=== PATIENT | female | born 1975 | race Two or more races ===

== ENCOUNTER 2017-05-22 16:12 | Emergency (ER) | payer MEDICAID ==
[~2017-05-22] VITALS: Ht 172.7 cm; Wt 133.8 kg
[2017-05-22 17:16] VITALS: BP 148/76
== END 2017-05-22 18:02 | disposition home or self-care (01) ==
LOC: ER 16:12
DX: N39.0 Urinary tract infection, site not specified (principal); M79.671 Pain in right foot; J45.909 Unspecified asthma, uncomplicated; I10 Essential (primary) hypertension; E11.9 Type 2 diabetes mellitus without complications
CPT/HCPCS: 81002

== ENCOUNTER 2017-08-23 16:04 | Inpatient (IN) | payer MEDICAID ==
[~2017-08-23] VITALS: Ht 172.7 cm; Wt 150.4 kg
[2017-08-23] MEDS ORDERED: SODIUM CHLORIDE 0.9% 1,000 ML IV ONE (16:42)
[2017-08-23 17:25] LABS: Basophils # (auto) 0 uL; Basophils % (auto) 0.3 % (0.0-2.0); Eosinophils # (auto) 0.3 uL; Eosinophils % (auto) 2.4 % (0.0-7.0); Hematocrit 38.2 % (36.0-46.0); Hemoglobin 12.6 g/dL (12.2-16.2); Lymphocytes # (auto) 2.4 uL; Lymphocytes % (auto) 19.9 % (10.0-50.0); Mean Corpuscular Hemoglobin 27.1 pg (28.0-32.0); Mean Corpuscular Hgb Conc. 32.9 g/dL (32.0-36.0); Mean Corpuscular Volume 82.3 fL (80.0-100.0); Monocytes # (auto) 0.7 uL; Monocytes % (auto) 5.7 % (0.0-12.0); Neutrophils # (auto) 8.7 uL; Neutrophils % (auto) 71.7 % (37.0-80.0); Nucleated Red Blood Cells % 0.1 %; Platelet Count (auto) 252 10^3/uL (140-450); Red Blood Cells 4.64 10^6/uL (4.0-5.20); Red Cell Distribution Width 13.2 % (11.8-14.3); White Blood Cell 12.1 10^3/uL (4.4-10.8)
[2017-08-23 17:36] LABS: Bilirubin, Total 0.1 mg/dL (0.2-1.0); Calcium 8.2 mg/dL (8.5-10.1); Potassium 4.1 mmol/L (3.5-5.1); Total Protein 7.6 g/dL (6.4-8.2)
[2017-08-23] MEDS ORDERED: SODIUM CHLORIDE 0.9% 1,000 ML IVB ONE (17:39)
[2017-08-23] MEDS ORDERED: cefTRIAXone 1GM/10ml IVPUSH 10 ML IV ONE (17:45)
[2017-08-23] MEDS ORDERED: IPRATROPIUM BROM 0.5 MG/2.5ML INH SOL HHN ONE (17:45)
[2017-08-23] MEDS ORDERED: ALBUTEROL SULF 2.5 MG/0.5ML(0.5%) NEB SOLN HHN ONE (17:45)
[2017-08-23] MEDS ORDERED: methylPREDNISolone SOD SUCC 125 MG/2 ML VL IV ONE (17:45)
[2017-08-23 18:03] LABS: INR 0.89 (0.9-1.15); Partial Thromboplastin Time 31.7 sec (22.64-33.71); Prothrombin Time 9.7 sec (9.37-12.3)
[2017-08-23] MEDS ORDERED: InsuLIN REG 1unit/0.01ml Soln (100units/ml) IV ONE ×2 (19:45→23:30)
[2017-08-23] MEDS ORDERED: ONDANSETRON HCL 4 MG/2 ML VIAL IV PRN (22:15)
[2017-08-23] MEDS ORDERED: ACETAMINOPHEN 500 MG TAB PO PRN (22:15)
[2017-08-23] MEDS ORDERED: HYDROcodone-ACET 5/325MG TAB PO PRN (22:15)
[2017-08-23 23:01] VITALS: BP 135/71
[2017-08-23] MEDS: ALBUTEROL SULF 2.5 MG/0.5ML(0.5%) NEB SOLN NEB SCH (23:46)
[2017-08-23] MEDS: IPRATROPIUM BROM 0.5 MG/2.5ML INH SOL NEB SCH (23:46)
[2017-08-23 23:50] LABS: Lactic Acid w/Reflex 2.1 mmol/L (0.4-2.0)
[2017-08-24] MEDS ORDERED: ACCU-CHEK COMFORT CURVE STRIP VI SCH
[2017-08-24] MEDS ORDERED: InsuLIN REG 1unit/0.01ml Soln (100units/ml) SC SCH
[2017-08-24] MEDS: InsuLIN REG 1unit/0.01ml Soln (100units/ml) SC SCH ×5 (00:50→20:24)
[2017-08-24] MEDS ORDERED: INSULIN DETEMIR(LEVEMIR) 1unit/0.01ml Soln (100units/ml) SC ONE (00:50)
[2017-08-24] MEDS ORDERED: DEXTROSE (50%) 50ML SYRG IV PRN ×3 (01:00→19:45)
[2017-08-24] MEDS ORDERED: TEMAZEPAM 15 MG CAP PO ONE (02:15)
[2017-08-24] MEDS: ACCU-CHEK COMFORT CURVE STRIP VI SCH ×5 (04:00→20:24)
[2017-08-24 05:23] LABS: Basophils # (auto) 0 uL; Eosinophils # (auto) 0 uL; Hemoglobin 10.9 g/dL (12.2-16.2); Lymphocytes # (auto) 0.5 uL; Monocytes # (auto) 0.1 uL; Platelet Count (auto) 244 10^3/uL (140-450)
[2017-08-24 05:26] LABS: Hematocrit 34.8 % (36.0-46.0); Lymphocytes % (auto) 3.8 % (10.0-50.0); Mean Corpuscular Hemoglobin 26.4 pg (28.0-32.0); Mean Corpuscular Hgb Conc. 31.3 g/dL (32.0-36.0); Mean Corpuscular Volume 84.4 fL (80.0-100.0); Monocytes % (auto) 0.8 % (0.0-12.0); Neutrophils # (auto) 11.9 uL; Neutrophils % (auto) 95.4 % (37.0-80.0); Red Blood Cells 4.13 10^6/uL (4.0-5.20); White Blood Cell 12.5 10^3/uL (4.4-10.8)
[2017-08-24 05:27] LABS: BUN/Creatinine Ratio 15.7; Calcium 7.5 mg/dL (8.5-10.1); Potassium 4.8 mmol/L (3.5-5.1)
[2017-08-24] MEDS ORDERED: SODIUM CHLORIDE 0.9% 2,000 ML IV ONE (05:45)
[2017-08-24] MEDS: IPRATROPIUM BROM 0.5 MG/2.5ML INH SOL NEB SCH ×3 (06:00→18:20)
[2017-08-24] MEDS: ALBUTEROL SULF 2.5 MG/0.5ML(0.5%) NEB SOLN NEB SCH ×3 (06:00→18:20)
[2017-08-24] MEDS ORDERED: SODIUM CHLORIDE 0.9% 1,000 ML IV SCH (06:30)
[2017-08-24] MEDS ORDERED: INSULIN DETEMIR(LEVEMIR) 1unit/0.01ml Soln (100units/ml) SC SCH ×2 (07:00→22:00)
[2017-08-24] MEDS ORDERED: BENAZEPRIL HCL 10 MG TAB PO SCH (10:00)
[2017-08-24] MEDS ORDERED: METF-372 PO (10:11)
[2017-08-24] MEDS ORDERED: BENA20TA14 PO (10:11)
[2017-08-24] MEDS ORDERED: GABA300C10 PO (10:11)
[2017-08-24] MEDS ORDERED: INSLISPI SC (10:11)
[2017-08-24] MEDS ORDERED: INSLANTI SC (10:11)
[2017-08-24] MEDS ORDERED: ALBU1SYP PO (10:11)
[2017-08-24] MEDS ORDERED: TRAZ100T2 PO (10:11)
[2017-08-24] MEDS ORDERED: ALBUTEROL SULF 2 MG/5ML ORAL SYRUP PO PRN (10:15)
[2017-08-24] MEDS: SODIUM CHLORIDE 0.9% 1,000 ML IV SCH ×2 (10:30→20:26)
[2017-08-24] MEDS: INSULIN DETEMIR(LEVEMIR) 1unit/0.01ml Soln (100units/ml) SC SCH ×2 (10:30→20:24)
[2017-08-24] MEDS: BENAZEPRIL HCL 10 MG TAB PO SCH (11:11)
[2017-08-24 12:21] LABS: Urine Bacteria NONE SEEN /hpf (None Seen); Urine Blood 1+ /uL (Negative); Urine Specific Gravity 1.023 (1.001-1.035); Urine WBC 1 /hpf (0 - 5)
[2017-08-24] MEDS ORDERED: HYDR25TA4 PO (12:38)
[2017-08-24] MEDS ORDERED: FAM20T PO (12:38)
[2017-08-24] MEDS ORDERED: SERT-160 PO (12:38)
[2017-08-24] MEDS ORDERED: TRAM50TA2 PO (12:38)
[2017-08-24 13:00] VITALS: BP 157/90
[2017-08-24] MEDS: GABAPENTIN 300 MG CAP PO SCH ×2 (14:19→21:31)
[2017-08-24] MEDS: metFORMIN HYDROCHLORIDE 500 MG TAB PO SCH ×2 (15:46→18:53)
[2017-08-24 17:00] VITALS: BP 125/76
[2017-08-24 21:30] VITALS: BP 145/78
[2017-08-24] MEDS: traZODone HCL 50 MG TAB PO SCH (21:31)
[2017-08-24] MEDS ORDERED: PATIENTS OWN MEDICATION (Trazodone Hcl 100 MG) PO SCH (22:00)
[2017-08-24] MEDS ORDERED: PATIENTS OWN MEDICATION (Metformin Hydrochloride (Metformin Hcl) 1 TAB) PO SCH (22:00)
[2017-08-25] MEDS: InsuLIN REG 1unit/0.01ml Soln (100units/ml) SC SCH ×6 (00:13→20:37)
[2017-08-25] MEDS: ACCU-CHEK COMFORT CURVE STRIP VI SCH ×6 (00:13→20:37)
[2017-08-25] MEDS: ALBUTEROL SULF 2.5 MG/0.5ML(0.5%) NEB SOLN NEB SCH ×5 (00:40→19:36)
[2017-08-25] MEDS: IPRATROPIUM BROM 0.5 MG/2.5ML INH SOL NEB SCH ×5 (00:40→19:36)
[2017-08-25 05:00] VITALS: BP_SYST 56; BP_SYST 95; BP_DIAS 56
[2017-08-25 05:51] LABS: Eosinophils # (auto) 0.2 uL; Hemoglobin 10.2 g/dL (12.2-16.2); Lymphocytes # (auto) 2.5 uL; Monocytes # (auto) 0.9 uL; Neutrophils # (auto) 11.6 uL; White Blood Cell 15.2 10^3/uL (4.4-10.8)
[2017-08-25 05:52] LABS: Basophils # (auto) 0 uL; Basophils % (auto) 0.2 % (0.0-2.0); Eosinophils % (auto) 1.1 % (0.0-7.0); Hematocrit 31.2 % (36.0-46.0); Lymphocytes % (auto) 16.6 % (10.0-50.0); Mean Corpuscular Hemoglobin 26.6 pg (28.0-32.0); Mean Corpuscular Hgb Conc. 32.6 g/dL (32.0-36.0); Mean Corpuscular Volume 81.6 fL (80.0-100.0); Monocytes % (auto) 6.1 % (0.0-12.0); Platelet Count (auto) 273 10^3/uL (140-450); Red Blood Cells 3.82 10^6/uL (4.0-5.20); Red Cell Distribution Width 13.6 % (11.8-14.3)
[2017-08-25 06:04] LABS: Albumin 1.6 g/dL (3.4-5.0); Anion Gap 9 (5-15); Blood Urea Nitrogen 27 mg/dL (7-18); Calcium 7.9 mg/dL (8.5-10.1); Carbon Dioxide 21 mmol/L (21-32); Chloride 109 mmol/L (98-107); Glucose 151 mg/dL (74-106); Potassium 4.1 mmol/L (3.5-5.1); Sodium 139 mmol/L (136-145)
[2017-08-25] MEDS: SODIUM CHLORIDE 0.9% 1,000 ML IV SCH ×2 (06:05→15:40)
[2017-08-25 06:07] LABS: Alanine Aminotransferase 9 U/L (13-56); Aspartate Aminotransferase 10 U/L (15-37); BUN/Creatinine Ratio 21.1; GFR African American 60 mL/min; GFR Non-African American 49 mL/min
[2017-08-25 06:09] LABS: Alkaline Phosphatase 315 U/L (45-117); Bilirubin, Total < 0.1 mg/dL (0.2-1.0); Total Protein 6.3 g/dL (6.4-8.2)
[2017-08-25] MEDS: metFORMIN HYDROCHLORIDE 500 MG TAB PO SCH ×2 (06:27→17:44)
[2017-08-25] MEDS: GABAPENTIN 300 MG CAP PO SCH ×3 (06:27→21:19)
[2017-08-25 09:00] VITALS: BP 95/62
[2017-08-25] MEDS ORDERED: PATIENTS OWN MEDICATION (Benazepril Hcl 20 MG) PO SCH (10:00)
[2017-08-25] MEDS: BENAZEPRIL HCL 10 MG TAB PO SCH (10:18)
[2017-08-25] MEDS: INSULIN DETEMIR(LEVEMIR) 1unit/0.01ml Soln (100units/ml) SC SCH ×2 (10:21→20:37)
[2017-08-25 13:00] VITALS: BP 112/75
[2017-08-25 17:00] VITALS: BP 119/63
[2017-08-25] MEDS: traZODone HCL 50 MG TAB PO SCH (21:19)
[2017-08-25 21:32] VITALS: BP 99/43
[2017-08-26] MEDS: InsuLIN REG 1unit/0.01ml Soln (100units/ml) SC SCH ×6 (00:06→20:35)
[2017-08-26] MEDS: ACCU-CHEK COMFORT CURVE STRIP VI SCH ×6 (00:06→20:35)
[2017-08-26] MEDS: IPRATROPIUM BROM 0.5 MG/2.5ML INH SOL NEB SCH ×4 (00:12→20:48)
[2017-08-26] MEDS: ALBUTEROL SULF 2.5 MG/0.5ML(0.5%) NEB SOLN NEB SCH ×3 (00:12→20:48)
[2017-08-26] MEDS: SODIUM CHLORIDE 0.9% 1,000 ML IV SCH ×3 (03:55→22:33)
[2017-08-26 05:00] VITALS: BP 98/62
[2017-08-26] MEDS: GABAPENTIN 300 MG CAP PO SCH ×3 (05:49→22:22)
[2017-08-26] MEDS: metFORMIN HYDROCHLORIDE 500 MG TAB PO SCH ×2 (05:49→18:33)
[2017-08-26 05:54] LABS: Basophils # (auto) 0.1 uL; Basophils % (auto) 0.5 % (0.0-2.0); Hemoglobin 10.3 g/dL (12.2-16.2); Mean Corpuscular Hemoglobin 26.1 pg (28.0-32.0); Mean Corpuscular Hgb Conc. 31.6 g/dL (32.0-36.0); Mean Corpuscular Volume 82.5 fL (80.0-100.0); Monocytes # (auto) 0.9 uL; Neutrophils # (auto) 7.3 uL; Nucleated Red Blood Cells % 0.1 %
[2017-08-26 05:56] LABS: Eosinophils # (auto) 0.6 uL; Eosinophils % (auto) 5.3 % (0.0-7.0); Hematocrit 32.7 % (36.0-46.0); Lymphocytes # (auto) 2.8 uL; Lymphocytes % (auto) 24.2 % (10.0-50.0); Monocytes % (auto) 7.9 % (0.0-12.0); Neutrophils % (auto) 62.1 % (37.0-80.0); Platelet Count (auto) 290 10^3/uL (140-450); Red Blood Cells 3.97 10^6/uL (4.0-5.20); Red Cell Distribution Width 13.6 % (11.8-14.3); White Blood Cell 11.8 10^3/uL (4.4-10.8)
[2017-08-26 05:57] LABS: BUN/Creatinine Ratio 26.7; Calcium 8.3 mg/dL (8.5-10.1); Potassium 4.7 mmol/L (3.5-5.1)
[2017-08-26 07:50] VITALS: BP 106/59
[2017-08-26] MEDS: BENAZEPRIL HCL 10 MG TAB PO SCH (09:50)
[2017-08-26] MEDS: INSULIN DETEMIR(LEVEMIR) 1unit/0.01ml Soln (100units/ml) SC SCH ×2 (09:51→22:33)
[2017-08-26] MEDS ORDERED: methylPREDNISolone SOD SUCC 40 MG/ML VL IV SCH (10:00)
[2017-08-26 11:29] VITALS: BP 145/72
[2017-08-26 16:13] VITALS: BP 164/85
[2017-08-26] MEDS ORDERED: InsuLIN REG 1unit/0.01ml Soln (100units/ml) SC ONE ×2 (17:00→18:30)
[2017-08-26] MEDS ORDERED: DOCUSATE SOD 100 MG CAP PO PRN (18:30)
[2017-08-26 22:00] VITALS: BP 142/78
[2017-08-26] MEDS: traZODone HCL 50 MG TAB PO SCH (22:22)
[2017-08-26 23:05] VITALS: BP 142/78
[2017-08-27] MEDS: ALBUTEROL SULF 2.5 MG/0.5ML(0.5%) NEB SOLN NEB SCH ×3 (00:19→12:27)
[2017-08-27] MEDS: IPRATROPIUM BROM 0.5 MG/2.5ML INH SOL NEB SCH ×3 (00:19→12:27)
[2017-08-27] MEDS: ACCU-CHEK COMFORT CURVE STRIP VI SCH ×3 (00:28→09:31)
[2017-08-27] MEDS: InsuLIN REG 1unit/0.01ml Soln (100units/ml) SC SCH ×3 (04:33→09:31)
[2017-08-27 05:00] VITALS: BP 112/62
[2017-08-27 05:46] LABS: Basophils # (auto) 0 uL; Eosinophils # (auto) 0 uL; Eosinophils % (auto) 0.2 % (0.0-7.0); Hemoglobin 9.9 g/dL (12.2-16.2); Neutrophils # (auto) 13.4 uL; White Blood Cell 16.3 10^3/uL (4.4-10.8)
[2017-08-27 05:49] LABS: Basophils % (auto) 0.3 % (0.0-2.0); Hematocrit 30.9 % (36.0-46.0); Lymphocytes # (auto) 1.8 uL; Lymphocytes % (auto) 11.2 % (10.0-50.0); Mean Corpuscular Hemoglobin 26.2 pg (28.0-32.0); Mean Corpuscular Volume 81.7 fL (80.0-100.0); Monocytes % (auto) 6.1 % (0.0-12.0); Neutrophils % (auto) 82.2 % (37.0-80.0); Nucleated Red Blood Cells % 0.1 %; Platelet Count (auto) 300 10^3/uL (140-450); Red Blood Cells 3.78 10^6/uL (4.0-5.20); Red Cell Distribution Width 13.8 % (11.8-14.3)
[2017-08-27 06:01] LABS: BUN/Creatinine Ratio 22.5
[2017-08-27] MEDS: metFORMIN HYDROCHLORIDE 500 MG TAB PO SCH (06:41)
[2017-08-27] MEDS: GABAPENTIN 300 MG CAP PO SCH (06:41)
[2017-08-27 07:52] VITALS: BP 130/73
[2017-08-27] MEDS: BENAZEPRIL HCL 10 MG TAB PO SCH (09:27)
[2017-08-27] MEDS: SODIUM CHLORIDE 0.9% 1,000 ML IV SCH (09:31)
[2017-08-27] MEDS ORDERED: POTASSIUM CHL 20 Meq TABLET PO ONE (11:30)
[2017-08-27 11:34] VITALS: BP 123/68
[2017-08-27] MEDS: INSULIN DETEMIR(LEVEMIR) 1unit/0.01ml Soln (100units/ml) SC SCH (11:39)
[2017-08-27 12:44] VITALS: BP 130/73
== END 2017-08-27 13:50 | disposition home or self-care (01) | DRG 420 ==
LOC: EDBD 16:04 → ER 16:07 → OVERFLOW 16:08 → WEST WING 08-24 08:37
PROVIDERS: ADMIT Nurse Practitioner Family; ATTEND Internal Medicine
DX: E10.65 Type 1 diabetes mellitus with hyperglycemia (principal); E43 Unspecified severe protein-calorie malnutrition; Z68.43 Body mass index [BMI] 50.0-59.9, adult; J45.901 Unspecified asthma with (acute) exacerbation; E10.22 Type 1 diabetes mellitus with diabetic chronic kidney disease; E66.01 Morbid (severe) obesity due to excess calories; N18.3 Chronic kidney disease, stage 3 (moderate); E78.5 Hyperlipidemia, unspecified; I12.9 Hypertensive chronic kidney disease with stage 1 through stage 4 chronic kidney disease, or unspecified chronic kidney disease; Z89.419 Acquired absence of unspecified great toe; Z89.429 Acquired absence of other toe(s), unspecified side; Z88.0 Allergy status to penicillin
CPT/HCPCS: 36415; 71045; 80048; 80053; 81001; 82010; 82962; 83036; 83605; 83735; 84702; 85025; 85610; 85730; 87040; 87400; 93005; 94640; 94761; 96361; 96365; 96372; 96375; 96376; J1815

== ENCOUNTER 2017-08-30 20:46 | Inpatient (IN) | payer MEDICAID ==
[~2017-08-30] VITALS: Ht 172.7 cm; Wt 149.2 kg
[~2017-08-30 20:46] MED LIST: ALBU1SYP PO; BENA20TA14 PO; FAM20T PO; GABA300C10 PO; HYDR25TA4 PO; INSLANTI SC; INSLISPI SC; METF-372 PO; SERT-160 PO; TRAM50TA2 PO; TRAZ100T2 PO
[2017-08-30] MEDS ORDERED: methylPREDNISolone SOD SUCC 125 MG/2 ML VL ONE (20:55)
[2017-08-30] MEDS ORDERED: ALBUTEROL SULF 2.5 MG/0.5ML(0.5%) NEB SOLN NEB ONE ×2 (21:00→21:15)
[2017-08-30] MEDS ORDERED: IPRATROPIUM BROM 0.5 MG/2.5ML INH SOL NEB ONE ×2 (21:00→21:15)
[2017-08-30] MEDS ORDERED: methylPREDNISolone SOD SUCC 125 MG/2 ML VL IV ONE (21:15)
[2017-08-30] MEDS ORDERED: PROMETHAZINE W/CODEINE 5 ML ORAL SYRUP PO ONE (21:45)
[2017-08-30 21:49] LABS: Hemoglobin 10.7 g/dL (12.2-16.2); Monocytes # (auto) 0.7 uL
[2017-08-30 21:51] LABS: Basophils # (auto) 0 uL; Basophils % (auto) 0.3 % (0.0-2.0); Eosinophils # (auto) 0.7 uL; Eosinophils % (auto) 6.3 % (0.0-7.0); Hematocrit 32.6 % (36.0-46.0); Lymphocytes # (auto) 0.8 uL; Lymphocytes % (auto) 7.9 % (10.0-50.0); Mean Corpuscular Hemoglobin 26.9 pg (28.0-32.0); Mean Corpuscular Hgb Conc. 32.9 g/dL (32.0-36.0); Mean Corpuscular Volume 81.7 fL (80.0-100.0); Monocytes % (auto) 6.5 % (0.0-12.0); Neutrophils # (auto) 8.5 uL; Platelet Count (auto) 305 10^3/uL (140-450); Red Blood Cells 3.99 10^6/uL (4.0-5.20); Red Cell Distribution Width 13.1 % (11.8-14.3); White Blood Cell 10.8 10^3/uL (4.4-10.8)
[2017-08-30 22:08] LABS: Alanine Aminotransferase 12 U/L (13-56); Albumin 1.9 g/dL (3.4-5.0); Alkaline Phosphatase 147 U/L (45-117); Anion Gap 7 (5-15); Aspartate Aminotransferase 15 U/L (15-37); BUN/Creatinine Ratio 14.1; Bilirubin, Total 0.2 mg/dL (0.2-1.0); Blood Urea Nitrogen 19 mg/dL (7-18); Carbon Dioxide 27 mmol/L (21-32); Chloride 98 mmol/L (98-107); GFR African American 56 mL/min; GFR Non-African American 46 mL/min; Glucose 329 mg/dL (74-106); Sodium 132 mmol/L (136-145); Total Protein 6.5 g/dL (6.4-8.2)
[2017-08-31] MEDS ORDERED: SODIUM CHLORIDE 0.9% 1,000 ML IV ONE ×2 (00:15→03:30)
[2017-08-31] MEDS ORDERED: InsuLIN REG 1unit/0.01ml Soln (100units/ml) IV ONE ×2 (00:15→03:00)
[2017-08-31] MEDS ORDERED: TEMAZEPAM 15 MG CAP PO ONE (02:30)
[2017-08-31] MEDS ORDERED: DEXTROSE (50%) 50ML SYRG IV PRN (06:00)
[2017-08-31] MEDS ORDERED: HYDROcodone-ACET 5/325MG TAB PO PRN (06:00)
[2017-08-31] MEDS ORDERED: ACETAMINOPHEN 325 MG TAB PO PRN (06:00)
[2017-08-31] MEDS ORDERED: ONDANSETRON HCL 4 MG/2 ML VIAL IV PRN (06:00)
[2017-08-31] MEDS ORDERED: cloNIDine HCL 0.1 MG TAB PO PRN (06:00)
[2017-08-31] MEDS: GABAPENTIN 300 MG CAP PO SCH ×3 (06:22→21:42)
[2017-08-31] MEDS: ACCU-CHEK COMFORT CURVE STRIP VI SCH ×4 (06:37→23:31)
[2017-08-31] MEDS: InsuLIN REG 1unit/0.01ml Soln (100units/ml) SC SCH ×4 (06:42→23:32)
[2017-08-31 08:52] VITALS: BP 125/63
[2017-08-31] MEDS ORDERED: INSULIN LANTUS (GLARGINE) 1 /0.01ml (100units/ml) SC ONE (09:45)
[2017-08-31] MEDS ORDERED: methylPREDNISolone SOD SUCC 125 MG/2 ML VL IV SCH (10:00)
[2017-08-31] MEDS: IPRATROPIUM BROM 0.5 MG/2.5ML INH SOL NEB PRN ×3 (10:29→20:02)
[2017-08-31] MEDS: ALBUTEROL SULF 2.5 MG/0.5ML(0.5%) NEB SOLN NEB PRN ×3 (10:29→20:01)
[2017-08-31 12:30] VITALS: BP 145/84
[2017-08-31] MEDS: ENOXAPARIN SOD 40 MG/0.4 ML SYRINGE SC SCH (12:30)
[2017-08-31] MEDS: methylPREDNISolone SOD SUCC 125 MG/2 ML VL IV SCH ×2 (12:30→21:41)
[2017-08-31] MEDS: BENAZEPRIL HCL 10 MG TAB PO SCH (12:31)
[2017-08-31] MEDS: FAMOTIDINE 20 MG TAB PO SCH ×2 (12:31→21:41)
[2017-08-31] MEDS ORDERED: InsuLIN REG 1unit/0.01ml Soln (100units/ml) SC ONE (13:45)
[2017-08-31 16:07] VITALS: BP 131/93
[2017-08-31 22:00] VITALS: BP 116/46
[2017-08-31] MEDS: TEMAZEPAM 15 MG CAP PO PRN (22:07)
[2017-09-01 05:00] VITALS: BP 121/72
[2017-09-01 05:24] LABS: Basophils # (auto) 0 uL; Eosinophils # (auto) 0 uL; Hemoglobin 10.2 g/dL (12.2-16.2); Lymphocytes # (auto) 0.8 uL
[2017-09-01] MEDS: GABAPENTIN 300 MG CAP PO SCH ×3 (05:25→21:39)
[2017-09-01 05:31] LABS: Basophils % (auto) 0.1 % (0.0-2.0); Hematocrit 30.9 % (36.0-46.0); Lymphocytes % (auto) 5.4 % (10.0-50.0); Mean Corpuscular Hemoglobin 26.6 pg (28.0-32.0); Mean Corpuscular Hgb Conc. 32.9 g/dL (32.0-36.0); Monocytes # (auto) 0.4 uL; Monocytes % (auto) 3.1 % (0.0-12.0); Neutrophils # (auto) 12.9 uL; Neutrophils % (auto) 91.4 % (37.0-80.0); Platelet Count (auto) 349 10^3/uL (140-450); Red Blood Cells 3.82 10^6/uL (4.0-5.20); Red Cell Distribution Width 13.5 % (11.8-14.3); White Blood Cell 14.1 10^3/uL (4.4-10.8)
[2017-09-01] MEDS: ACCU-CHEK COMFORT CURVE STRIP VI SCH ×4 (05:39→23:20)
[2017-09-01 05:53] LABS: BUN/Creatinine Ratio 26.5; Potassium 4.9 mmol/L (3.5-5.1)
[2017-09-01 05:54] LABS: Albumin 1.9 g/dL (3.4-5.0); Bilirubin, Total 0.1 mg/dL (0.2-1.0); Calcium 7.9 mg/dL (8.5-10.1); Total Protein 6.6 g/dL (6.4-8.2)
[2017-09-01] MEDS: InsuLIN REG 1unit/0.01ml Soln (100units/ml) SC SCH ×4 (06:15→23:32)
[2017-09-01 08:00] VITALS: BP 143/65
[2017-09-01] MEDS: ALBUTEROL SULF 2.5 MG/0.5ML(0.5%) NEB SOLN NEB PRN ×2 (08:38→19:42)
[2017-09-01] MEDS: IPRATROPIUM BROM 0.5 MG/2.5ML INH SOL NEB PRN ×2 (08:38→19:42)
[2017-09-01 08:50] VITALS: BP 143/65
[2017-09-01] MEDS ORDERED: INSULIN LANTUS (GLARGINE) 1 /0.01ml (100units/ml) SC SCH (10:00)
[2017-09-01] MEDS: methylPREDNISolone SOD SUCC 125 MG/2 ML VL IV SCH ×2 (10:30→21:39)
[2017-09-01] MEDS: ENOXAPARIN SOD 40 MG/0.4 ML SYRINGE SC SCH (10:31)
[2017-09-01] MEDS: BENAZEPRIL HCL 10 MG TAB PO SCH (10:31)
[2017-09-01] MEDS: FAMOTIDINE 20 MG TAB PO SCH ×2 (10:32→21:39)
[2017-09-01] MEDS: metFORMIN HYDROCHLORIDE 500 MG TAB PO SCH ×2 (11:20→18:13)
[2017-09-01 12:59] VITALS: BP 144/94
[2017-09-01 16:14] VITALS: BP 140/95
[2017-09-01 22:00] VITALS: BP 140/80
[2017-09-01] MEDS: TEMAZEPAM 15 MG CAP PO PRN (22:14)
[2017-09-02] MEDS: BUDESONIDE (INHALATION) 0.5 MG/2 ML NEB NEB SCH (00:32)
[2017-09-02 05:15] VITALS: BP 143/84
[2017-09-02] MEDS: GABAPENTIN 300 MG CAP PO SCH ×3 (05:32→21:57)
[2017-09-02] MEDS: ACCU-CHEK COMFORT CURVE STRIP VI SCH ×3 (05:33→18:47)
[2017-09-02] MEDS: InsuLIN REG 1unit/0.01ml Soln (100units/ml) SC SCH ×4 (05:38→23:49)
[2017-09-02] MEDS: metFORMIN HYDROCHLORIDE 500 MG TAB PO SCH ×2 (05:39→18:47)
[2017-09-02 06:50] LABS: BUN/Creatinine Ratio 27.5; Potassium 5.3 mmol/L (3.5-5.1)
[2017-09-02 08:38] VITALS: BP 134/66
[2017-09-02] MEDS: IPRATROPIUM BROM 0.5 MG/2.5ML INH SOL NEB PRN (08:43)
[2017-09-02] MEDS: ALBUTEROL SULF 2.5 MG/0.5ML(0.5%) NEB SOLN NEB PRN (08:43)
[2017-09-02] MEDS ORDERED: MONTELUKAST SODIUM 10 MG TAB PO ONE (10:15)
[2017-09-02] MEDS: FAMOTIDINE 20 MG TAB PO SCH ×2 (10:35→21:44)
[2017-09-02] MEDS: ENOXAPARIN SOD 40 MG/0.4 ML SYRINGE SC SCH (10:35)
[2017-09-02] MEDS: BENAZEPRIL HCL 10 MG TAB PO SCH (10:35)
[2017-09-02] MEDS ORDERED: BUDESONIDE (INHALATION) 0.5 MG/2 ML NEB NEB ONE (11:15)
[2017-09-02] MEDS: methylPREDNISolone SOD SUCC 40 MG/ML VL IV SCH ×2 (11:23→22:05)
[2017-09-02] MEDS: INSULIN LANTUS (GLARGINE) 1 /0.01ml (100units/ml) SC SCH ×2 (11:27→21:59)
[2017-09-02] MEDS: SODIUM CHLORIDE 0.9% 1,000 ML IV SCH ×2 (11:34→20:00)
[2017-09-02 11:40] VITALS: BP 142/97
[2017-09-02] MEDS: ALBUTEROL SULF 2.5 MG/0.5ML(0.5%) NEB SOLN NEB SCH ×6 (12:20→18:00)
[2017-09-02] MEDS: IPRATROPIUM BROM 0.5 MG/2.5ML INH SOL NEB SCH ×3 (12:20→18:05)
[2017-09-02 16:30] VITALS: BP 107/59
[2017-09-02] MEDS ORDERED: DEXTROSE (50%) 50ML SYRG IV PRN (19:00)
[2017-09-02] MEDS ORDERED: InsuLIN REG 1unit/0.01ml Soln (100units/ml) SC ONE (19:15)
[2017-09-02] MEDS: TEMAZEPAM 15 MG CAP PO PRN (21:43)
[2017-09-02] MEDS: MONTELUKAST SODIUM 10 MG TAB PO SCH ×2 (21:44→22:08)
[2017-09-02 22:00] VITALS: BP 144/71
[2017-09-03 05:00] VITALS: BP 135/71
[2017-09-03 05:37] LABS: Basophils # (auto) 0 uL; Eosinophils # (auto) 0 uL; Lymphocytes # (auto) 1.1 uL; Monocytes # (auto) 0.7 uL
[2017-09-03 05:41] LABS: Basophils % (auto) 0.1 % (0.0-2.0); Hematocrit 31.7 % (36.0-46.0); Hemoglobin 10.3 g/dL (12.2-16.2); Lymphocytes % (auto) 6.4 % (10.0-50.0); Mean Corpuscular Hemoglobin 26.6 pg (28.0-32.0); Mean Corpuscular Hgb Conc. 32.6 g/dL (32.0-36.0); Mean Corpuscular Volume 81.5 fL (80.0-100.0); Monocytes % (auto) 4.4 % (0.0-12.0); Neutrophils # (auto) 14.6 uL; Neutrophils % (auto) 89.1 % (37.0-80.0); Platelet Count (auto) 364 10^3/uL (140-450); White Blood Cell 16.3 10^3/uL (4.4-10.8)
[2017-09-03] MEDS: InsuLIN REG 1unit/0.01ml Soln (100units/ml) SC SCH ×3 (06:00→18:25)
[2017-09-03] MEDS: GABAPENTIN 300 MG CAP PO SCH ×3 (06:00→22:37)
[2017-09-03] MEDS: ACCU-CHEK COMFORT CURVE STRIP VI SCH ×4 (06:00→18:26)
[2017-09-03] MEDS: SODIUM CHLORIDE 0.9% 1,000 ML IV SCH ×3 (06:00→23:05)
[2017-09-03 06:05] LABS: Alanine Aminotransferase 14 U/L (13-56); Albumin 1.8 g/dL (3.4-5.0); Alkaline Phosphatase 129 U/L (45-117); Anion Gap 8 (5-15); Aspartate Aminotransferase 11 U/L (15-37); BUN/Creatinine Ratio 25.8; Bilirubin, Total < 0.1 mg/dL (0.2-1.0); Blood Urea Nitrogen 31 mg/dL (7-18); Carbon Dioxide 24 mmol/L (21-32); Chloride 107 mmol/L (98-107); GFR African American 64 mL/min; GFR Non-African American 53 mL/min; Glucose 209 mg/dL (74-106); Potassium 4.8 mmol/L (3.5-5.1); Sodium 139 mmol/L (136-145); Total Protein 6.3 g/dL (6.4-8.2)
[2017-09-03] MEDS: metFORMIN HYDROCHLORIDE 500 MG TAB PO SCH ×2 (07:00→18:26)
[2017-09-03] MEDS: ALBUTEROL SULF 2.5 MG/0.5ML(0.5%) NEB SOLN NEB PRN (08:08)
[2017-09-03] MEDS: IPRATROPIUM BROM 0.5 MG/2.5ML INH SOL NEB SCH ×4 (08:08→19:57)
[2017-09-03 09:31] VITALS: BP 128/62
[2017-09-03] MEDS: FUROSEMIDE 20 MG/2 ML VIAL IV SCH (10:21)
[2017-09-03] MEDS: methylPREDNISolone SOD SUCC 40 MG/ML VL IV SCH ×2 (10:21→22:41)
[2017-09-03] MEDS: INSULIN LANTUS (GLARGINE) 1 /0.01ml (100units/ml) SC SCH ×2 (10:21→22:47)
[2017-09-03] MEDS: BENAZEPRIL HCL 10 MG TAB PO SCH (10:22)
[2017-09-03] MEDS: ENOXAPARIN SOD 40 MG/0.4 ML SYRINGE SC SCH (10:22)
[2017-09-03] MEDS: FAMOTIDINE 20 MG TAB PO SCH ×2 (10:22→22:37)
[2017-09-03] MEDS: BUDESONIDE (INHALATION) 0.5 MG/2 ML NEB NEB SCH ×2 (10:58→19:57)
[2017-09-03 11:39] VITALS: BP 168/106
[2017-09-03 16:53] VITALS: BP 148/93
[2017-09-03] MEDS: guaiFENesin 200 MG/10 ML UD PO SCH ×2 (18:26→22:39)
[2017-09-03 22:00] VITALS: BP 152/86
[2017-09-03] MEDS: TEMAZEPAM 15 MG CAP PO PRN (22:37)
[2017-09-03] MEDS: MONTELUKAST SODIUM 10 MG TAB PO SCH (22:37)
[2017-09-04 05:48] VITALS: BP 166/94
[2017-09-04] MEDS: InsuLIN REG 1unit/0.01ml Soln (100units/ml) SC SCH ×4 (06:00→17:08)
[2017-09-04] MEDS: ACCU-CHEK COMFORT CURVE STRIP VI SCH ×4 (06:00→17:08)
[2017-09-04 06:25] LABS: Hemoglobin 10.5 g/dL (12.2-16.2)
[2017-09-04 06:27] LABS: Hematocrit 33.2 % (36.0-46.0); Mean Corpuscular Hemoglobin 26.2 pg (28.0-32.0); Mean Corpuscular Hgb Conc. 31.8 g/dL (32.0-36.0); Mean Corpuscular Volume 82.3 fL (80.0-100.0); Platelet Count (auto) 402 10^3/uL (140-450); Red Blood Cells 4.03 10^6/uL (4.0-5.20); Red Cell Distribution Width 13.8 % (11.8-14.3); White Blood Cell 14.9 10^3/uL (4.4-10.8)
[2017-09-04] MEDS: guaiFENesin 200 MG/10 ML UD PO SCH ×3 (06:31→22:30)
[2017-09-04 06:34] LABS: Band Neutrophils % (manual) 0; Basophils % (manual) 0 (0.0-2.0); Blast Cells 0; Eosinophils % (manual) 0 (0-7); Metamyelocytes % 0; Myelocytes % 0; Promyelocytes % 0; Reactive Lymphocytes 0
[2017-09-04] MEDS: GABAPENTIN 300 MG CAP PO SCH ×3 (06:45→22:29)
[2017-09-04 06:50] LABS: Albumin 1.8 g/dL (3.4-5.0); BUN/Creatinine Ratio 24.3; Bilirubin, Total 0.1 mg/dL (0.2-1.0); Calcium 8.2 mg/dL (8.5-10.1); Potassium 4.7 mmol/L (3.5-5.1); Total Protein 6.2 g/dL (6.4-8.2)
[2017-09-04] MEDS: metFORMIN HYDROCHLORIDE 500 MG TAB PO SCH ×2 (06:52→17:41)
[2017-09-04] MEDS: ALBUTEROL SULF 2.5 MG/0.5ML(0.5%) NEB SOLN NEB PRN ×3 (07:12→14:47)
[2017-09-04] MEDS: BUDESONIDE (INHALATION) 0.5 MG/2 ML NEB NEB SCH ×2 (07:12→19:55)
[2017-09-04] MEDS: IPRATROPIUM BROM 0.5 MG/2.5ML INH SOL NEB SCH ×4 (07:12→18:00)
[2017-09-04 07:30] VITALS: BP 160/87
[2017-09-04 08:43] VITALS: BP 160/87
[2017-09-04] MEDS ORDERED: PROMETHAZINE W/CODEINE 5 ML ORAL SYRUP PO PRN (08:45)
[2017-09-04 10:20] LABS: Lymphocytes % (manual) 9 (10.0-50.0); Monocytes % (manual) 4 (0-12)
[2017-09-04] MEDS: FUROSEMIDE 20 MG/2 ML VIAL IV SCH (10:28)
[2017-09-04] MEDS: ENOXAPARIN SOD 40 MG/0.4 ML SYRINGE SC SCH (10:29)
[2017-09-04] MEDS: FAMOTIDINE 20 MG TAB PO SCH ×2 (10:29→22:29)
[2017-09-04] MEDS: methylPREDNISolone SOD SUCC 40 MG/ML VL IV SCH ×2 (10:29→22:29)
[2017-09-04] MEDS: BENAZEPRIL HCL 10 MG TAB PO SCH (10:29)
[2017-09-04] MEDS: INSULIN LANTUS (GLARGINE) 1 /0.01ml (100units/ml) SC SCH ×2 (10:33→22:30)
[2017-09-04 11:44] VITALS: BP 162/98
[2017-09-04 16:53] VITALS: BP 141/83
[2017-09-04 22:00] VITALS: BP 157/96
[2017-09-04] MEDS: TEMAZEPAM 15 MG CAP PO PRN (22:42)
[2017-09-05 05:30] VITALS: BP 160/96
[2017-09-05] MEDS: ACCU-CHEK COMFORT CURVE STRIP VI SCH ×2 (06:00)
[2017-09-05] MEDS: InsuLIN REG 1unit/0.01ml Soln (100units/ml) SC SCH ×2 (06:00)
[2017-09-05] MEDS: guaiFENesin 200 MG/10 ML UD PO SCH (06:37)
[2017-09-05] MEDS: GABAPENTIN 300 MG CAP PO SCH (06:37)
[2017-09-05] MEDS: metFORMIN HYDROCHLORIDE 500 MG TAB PO SCH (06:37)
[2017-09-05 07:04] LABS: Hemoglobin 11.1 g/dL (12.2-16.2); Mean Corpuscular Hemoglobin 26.2 pg (28.0-32.0)
[2017-09-05 07:07] LABS: Hematocrit 34.7 % (36.0-46.0); Mean Corpuscular Hgb Conc. 32.1 g/dL (32.0-36.0); Mean Corpuscular Volume 81.7 fL (80.0-100.0); Platelet Count (auto) 442 10^3/uL (140-450); Red Blood Cells 4.24 10^6/uL (4.0-5.20); White Blood Cell 16.2 10^3/uL (4.4-10.8)
[2017-09-05] MEDS: IPRATROPIUM BROM 0.5 MG/2.5ML INH SOL NEB SCH ×2 (07:10→10:39)
[2017-09-05] MEDS: BUDESONIDE (INHALATION) 0.5 MG/2 ML NEB NEB SCH (07:24)
[2017-09-05 07:25] LABS: Albumin 1.9 g/dL (3.4-5.0); BUN/Creatinine Ratio 28.5; Bilirubin, Total 0.1 mg/dL (0.2-1.0); Calcium 8.3 mg/dL (8.5-10.1); Potassium 4.6 mmol/L (3.5-5.1); Total Protein 6.3 g/dL (6.4-8.2)
[2017-09-05 07:30] VITALS: BP 145/75
[2017-09-05 07:35] LABS: Band Neutrophils % (manual) 0
[2017-09-05 07:36] LABS: Basophils % (manual) 0 (0.0-2.0); Blast Cells 0; Eosinophils % (manual) 0 (0-7); Metamyelocytes % 0; Myelocytes % 0; Promyelocytes % 0; Reactive Lymphocytes 0
[2017-09-05 08:47] VITALS: BP 145/75
[2017-09-05 09:42] VITALS: BP 145/75
[2017-09-05] MEDS: methylPREDNISolone SOD SUCC 40 MG/ML VL IV SCH (10:23)
[2017-09-05] MEDS: FUROSEMIDE 20 MG/2 ML VIAL IV SCH (10:23)
[2017-09-05] MEDS: BENAZEPRIL HCL 10 MG TAB PO SCH (10:24)
[2017-09-05] MEDS: FAMOTIDINE 20 MG TAB PO SCH (10:24)
[2017-09-05] MEDS: INSULIN LANTUS (GLARGINE) 1 /0.01ml (100units/ml) SC SCH (10:24)
[2017-09-05] MEDS: ENOXAPARIN SOD 40 MG/0.4 ML SYRINGE SC SCH (10:25)
[2017-09-05 14:07] LABS: Lymphocytes % (manual) 13 (10.0-50.0); Monocytes % (manual) 4 (0-12)
== END 2017-09-05 11:15 | disposition home or self-care (01) | DRG 420 ==
LOC: ER 20:46 → OVERFLOW 20:47 → EDUNIT# 20:47 → WEST WING 08-31 08:24 → TELE-WESTW 09-02 13:21
PROVIDERS: ADMIT Nurse Practitioner; ATTEND Internal Medicine
DX: E11.65 Type 2 diabetes mellitus with hyperglycemia (principal); E43 Unspecified severe protein-calorie malnutrition; Z68.43 Body mass index [BMI] 50.0-59.9, adult; J45.901 Unspecified asthma with (acute) exacerbation; E66.01 Morbid (severe) obesity due to excess calories; I10 Essential (primary) hypertension
CPT/HCPCS: 36415; 71045; 80048; 80053; 82962; 83036; 83735; 83880; 84484; 85007; 85025; 85027; 85379; 93005; 94640; 94644; 96361; 96374; 96375; 96376; J1815

== ENCOUNTER 2017-09-07 13:17 | Inpatient (IN) | payer MEDICAID ==
[~2017-09-07] VITALS: Ht 172.7 cm; Wt 148.6 kg
[2017-09-07 13:59] LABS: Hematocrit 35.5 % (36.0-46.0); Hemoglobin 11.3 g/dL (12.2-16.2); Mean Corpuscular Hemoglobin 26.2 pg (28.0-32.0); Mean Corpuscular Hgb Conc. 31.8 g/dL (32.0-36.0); Mean Corpuscular Volume 82.4 fL (80.0-100.0); Platelet Count (auto) 408 10^3/uL (140-450); White Blood Cell 18.5 10^3/uL (4.4-10.8)
[2017-09-07 14:01] LABS: Urine Bacteria FEW /hpf (None Seen); Urine Blood 3+ /uL (Negative); Urine Mucus FEW (None Seen); Urine Specific Gravity 1.019 (1.001-1.035); Urine WBC 16 /hpf (0 - 5)
[2017-09-07 14:02] LABS: Band Neutrophils % (manual) 0; Basophils % (manual) 0 (0.0-2.0); Eosinophils % (manual) 0 (0-7); Metamyelocytes % 0; Myelocytes % 0; Promyelocytes % 0
[2017-09-07 14:03] LABS: Blast Cells 0; Reactive Lymphocytes 0
[2017-09-07 14:14] LABS: Lymphocytes % (manual) 4 (10.0-50.0); Monocytes % (manual) 2 (0-12)
[2017-09-07 14:20] LABS: Albumin 1.9 g/dL (3.4-5.0); BUN/Creatinine Ratio 26.9; Bilirubin, Total 0.2 mg/dL (0.2-1.0); Calcium 8.1 mg/dL (8.5-10.1); Potassium 4.7 mmol/L (3.5-5.1); Total Protein 6.1 g/dL (6.4-8.2)
[2017-09-07] MEDS ORDERED: FUROSEMIDE 40 MG/4 ML VIAL IV ONE (15:15)
[2017-09-07] MEDS ORDERED: InsuLIN REG 1unit/0.01ml Soln (100units/ml) IV ONE (15:15)
[2017-09-07] MEDS ORDERED: traMADol HCL 50 MG TAB PO PRN (16:15)
[2017-09-07] MEDS ORDERED: LABETALOL HCL 5 MG/ML ML 20ML VIAL IV PRN (16:15)
[2017-09-07] MEDS ORDERED: ALPRAZolam 0.25 MG TAB PO PRN (16:15)
[2017-09-07] MEDS ORDERED: cloNIDine HCL 0.1 MG TAB PO PRN (16:15)
[2017-09-07] MEDS ORDERED: POTASSIUM CHL 10 Meq TABLET PO ONE (16:15)
[2017-09-07] MEDS ORDERED: TEMAZEPAM 15 MG CAP PO PRN (16:30)
[2017-09-07] MEDS ORDERED: ONDANSETRON HCL 4 MG/2 ML VIAL IV PRN (16:30)
[2017-09-07] MEDS ORDERED: MORPHINE SULFATE 4 MG/ML SYR/VIAL IV PRN ×2 (16:30)
[2017-09-07] MEDS ORDERED: DOCUSATE SOD 100 MG CAP PO PRN (16:30)
[2017-09-07] MEDS ORDERED: HYDROcodone-ACET 5/325MG TAB PO PRN (16:30)
[2017-09-07] MEDS ORDERED: NITROGLYCERIN 0.4 MG SL TAB SL PRN (16:30)
[2017-09-07] MEDS ORDERED: ACETAMINOPHEN 325 MG TAB PO PRN (16:30)
[2017-09-07] MEDS: ACCU-CHEK COMFORT CURVE STRIP VI SCH ×2 (16:52→22:04)
[2017-09-07] MEDS: InsuLIN REG 1unit/0.01ml Soln (100units/ml) SC SCH ×2 (16:53→22:00)
[2017-09-07] MEDS: Boost Glucose Control 8 Ounces PO SCH (18:15)
[2017-09-07] MEDS: NovoloG Insulin 1unit/0.01ml Soln (100units/ml) SC SCH (18:25)
[2017-09-07] MEDS: ALBUTEROL SULF 2.5 MG/0.5ML(0.5%) NEB SOLN NEB SCH (18:29)
[2017-09-07] MEDS: IPRATROPIUM BROM 0.5 MG/2.5ML INH SOL NEB SCH (18:29)
[2017-09-07 20:55] VITALS: BP 164/113
[2017-09-07 21:40] LABS: Lactic Acid w/Reflex 2.1 mmol/L (0.4-2.0)
[2017-09-07] MEDS: SODIUM CHLOR 0.9% PF (SALINE LOCK) 10ML VIAL IV SCH (22:04)
[2017-09-07] MEDS: GABAPENTIN 300 MG CAP PO SCH (22:07)
[2017-09-07] MEDS: FAMOTIDINE 20 MG TAB PO SCH (22:07)
[2017-09-07 22:30] VITALS: BP 138/73
[2017-09-08] MEDS: ALBUTEROL SULF 2.5 MG/0.5ML(0.5%) NEB SOLN NEB SCH ×4 (00:36→18:55)
[2017-09-08] MEDS: IPRATROPIUM BROM 0.5 MG/2.5ML INH SOL NEB SCH ×4 (00:36→18:55)
[2017-09-08 05:42] VITALS: BP 125/71
[2017-09-08] MEDS: FUROSEMIDE 40 MG/4 ML VIAL IV SCH ×2 (06:41→17:13)
[2017-09-08] MEDS: GABAPENTIN 300 MG CAP PO SCH ×3 (06:41→21:32)
[2017-09-08] MEDS: SODIUM CHLOR 0.9% PF (SALINE LOCK) 10ML VIAL IV SCH ×3 (06:41→21:32)
[2017-09-08] MEDS: InsuLIN REG 1unit/0.01ml Soln (100units/ml) SC SCH ×4 (06:43→22:00)
[2017-09-08] MEDS: ACCU-CHEK COMFORT CURVE STRIP VI SCH ×4 (06:43→22:27)
[2017-09-08 07:17] LABS: Hemoglobin 10.9 g/dL (12.2-16.2)
[2017-09-08 07:19] LABS: Hematocrit 34.2 % (36.0-46.0); Mean Corpuscular Hemoglobin 26.1 pg (28.0-32.0); Mean Corpuscular Hgb Conc. 31.9 g/dL (32.0-36.0); Mean Corpuscular Volume 81.7 fL (80.0-100.0); Platelet Count (auto) 400 10^3/uL (140-450); Red Blood Cells 4.19 10^6/uL (4.0-5.20); Red Cell Distribution Width 13.8 % (11.8-14.3); White Blood Cell 15.2 10^3/uL (4.4-10.8)
[2017-09-08 07:29] LABS: Band Neutrophils % (manual) 0; Basophils % (manual) 0 (0.0-2.0); Blast Cells 0; Metamyelocytes % 0; Myelocytes % 0; Promyelocytes % 0; Reactive Lymphocytes 0
[2017-09-08 07:34] LABS: Albumin 1.9 g/dL (3.4-5.0); BUN/Creatinine Ratio 34.9; Bilirubin, Total 0.2 mg/dL (0.2-1.0); Calcium 8.4 mg/dL (8.5-10.1); Potassium 4.3 mmol/L (3.5-5.1); Total Protein 5.8 g/dL (6.4-8.2)
[2017-09-08] MEDS: Boost Glucose Control 8 Ounces PO SCH ×3 (08:17→17:28)
[2017-09-08] MEDS: NovoloG Insulin 1unit/0.01ml Soln (100units/ml) SC SCH ×2 (08:17→17:27)
[2017-09-08 08:50] VITALS: BP 130/56
[2017-09-08] MEDS: POTASSIUM CHL 10 Meq TABLET PO SCH ×2 (09:29→21:32)
[2017-09-08] MEDS: FAMOTIDINE 20 MG TAB PO SCH ×2 (09:30→21:32)
[2017-09-08] MEDS: HCTZ 25 MG TAB PO SCH (09:30)
[2017-09-08] MEDS: MULTIPLE VITAMIN TAB PO SCH (09:30)
[2017-09-08] MEDS: ENOXAPARIN SOD 40 MG/0.4 ML SYRINGE SC SCH (09:31)
[2017-09-08] MEDS: BENAZEPRIL HCL 10 MG TAB PO SCH (09:31)
[2017-09-08] MEDS ORDERED: LEVOFLOXACIN 500 MG TAB PO ONE (10:15)
[2017-09-08] MEDS ORDERED: PROMETHAZINE HCL 25 MG/ML 1ML IV PRN (10:15)
[2017-09-08] MEDS: DEXTROSE (50%) 50ML SYRG IV PRN (10:18)
[2017-09-08 13:00] VITALS: BP 120/60
[2017-09-08 14:04] LABS: Eosinophils % (manual) 3 (0-7); Lymphocytes % (manual) 36 (10.0-50.0); Monocytes % (manual) 9 (0-12)
[2017-09-08 17:00] VITALS: BP 112/66
[2017-09-08 22:00] VITALS: BP 104/59
[2017-09-09] MEDS: IPRATROPIUM BROM 0.5 MG/2.5ML INH SOL NEB SCH ×3 (00:44→11:55)
[2017-09-09] MEDS: ALBUTEROL SULF 2.5 MG/0.5ML(0.5%) NEB SOLN NEB SCH ×3 (00:45→11:55)
[2017-09-09 05:00] VITALS: BP 109/59
[2017-09-09] MEDS: FUROSEMIDE 40 MG/4 ML VIAL IV SCH (05:57)
[2017-09-09] MEDS: SODIUM CHLOR 0.9% PF (SALINE LOCK) 10ML VIAL IV SCH (05:57)
[2017-09-09] MEDS: GABAPENTIN 300 MG CAP PO SCH (05:58)
[2017-09-09 06:38] LABS: Hematocrit 32.3 % (36.0-46.0); Hemoglobin 10.2 g/dL (12.2-16.2); Mean Corpuscular Hgb Conc. 31.6 g/dL (32.0-36.0); Mean Corpuscular Volume 82.3 fL (80.0-100.0); Platelet Count (auto) 345 10^3/uL (140-450); Red Blood Cells 3.92 10^6/uL (4.0-5.20); Red Cell Distribution Width 13.8 % (11.8-14.3); White Blood Cell 12.8 10^3/uL (4.4-10.8)
[2017-09-09] MEDS: InsuLIN REG 1unit/0.01ml Soln (100units/ml) SC SCH ×2 (06:39→11:30)
[2017-09-09] MEDS: ACCU-CHEK COMFORT CURVE STRIP VI SCH ×2 (06:39→11:38)
[2017-09-09 06:46] LABS: Calcium 8.6 mg/dL (8.5-10.1); Potassium 4.9 mmol/L (3.5-5.1)
[2017-09-09 06:49] LABS: Albumin 1.8 g/dL (3.4-5.0); BUN/Creatinine Ratio 36.2
[2017-09-09 06:53] LABS: Bilirubin, Total 0.1 mg/dL (0.2-1.0); Total Protein 5.5 g/dL (6.4-8.2)
[2017-09-09 07:03] LABS: Band Neutrophils % (manual) 0; Basophils % (manual) 0 (0.0-2.0); Blast Cells 0; Metamyelocytes % 0; Myelocytes % 0; Promyelocytes % 0; Reactive Lymphocytes 0
[2017-09-09] MEDS: Boost Glucose Control 8 Ounces PO SCH ×2 (08:00→12:00)
[2017-09-09] MEDS: NovoloG Insulin 1unit/0.01ml Soln (100units/ml) SC SCH (08:06)
[2017-09-09 09:00] VITALS: BP 116/73
[2017-09-09 09:51] LABS: Eosinophils % (manual) 3 (0-7); Lymphocytes % (manual) 30 (10.0-50.0); Monocytes % (manual) 9 (0-12)
[2017-09-09] MEDS: POTASSIUM CHL 10 Meq TABLET PO SCH (10:00)
[2017-09-09] MEDS ORDERED: LEVOFLOXACIN 500 MG TAB PO SCH (10:00)
[2017-09-09] MEDS: HCTZ 25 MG TAB PO SCH (10:06)
[2017-09-09] MEDS: MULTIPLE VITAMIN TAB PO SCH (10:06)
[2017-09-09] MEDS: BENAZEPRIL HCL 10 MG TAB PO SCH (10:06)
[2017-09-09] MEDS: FAMOTIDINE 20 MG TAB PO SCH (10:06)
[2017-09-09] MEDS: ENOXAPARIN SOD 40 MG/0.4 ML SYRINGE SC SCH (10:07)
[2017-09-09 10:46] VITALS: BP 116/73
[2017-09-09] MEDS: DEXTROSE (50%) 50ML SYRG IV PRN (11:34)
[2017-09-09 13:02] VITALS: BP 101/56
== END 2017-09-09 15:10 | disposition home or self-care (01) | DRG 720 ==
LOC: ER 13:17 → TELE 13:18 → EDUNIT# 13:18 → TELE 22:24 → TELE-EAST 22:25
PROVIDERS: ADMIT Internal Medicine; ATTEND Internal Medicine
DX: A41.9 Sepsis, unspecified organism (principal); E11.21 Type 2 diabetes mellitus with diabetic nephropathy; E44.0 Moderate protein-calorie malnutrition; J44.1 Chronic obstructive pulmonary disease with (acute) exacerbation; J45.901 Unspecified asthma with (acute) exacerbation; I13.0 Hypertensive heart and chronic kidney disease with heart failure and stage 1 through stage 4 chronic kidney disease, or unspecified chronic kidney disease; I50.9 Heart failure, unspecified; E11.65 Type 2 diabetes mellitus with hyperglycemia; N18.3 Chronic kidney disease, stage 3 (moderate); E83.51 Hypocalcemia; E66.01 Morbid (severe) obesity due to excess calories; N39.0 Urinary tract infection, site not specified; E11.22 Type 2 diabetes mellitus with diabetic chronic kidney disease; D50.9 Iron deficiency anemia, unspecified; Z79.4 Long term (current) use of insulin; Z83.3 Family history of diabetes mellitus; Z91.19 Patient's noncompliance with other medical treatment and regimen; Z68.42 Body mass index [BMI] 45.0-49.9, adult; Z88.0 Allergy status to penicillin; E88.09 Other disorders of plasma-protein metabolism, not elsewhere classified
CPT/HCPCS: 36415; 71046; 80053; 81001; 82962; 83036; 83540; 83605; 83880; 84443; 84484; 85007; 85027; 87081; 87086; 93005; 93306; 94640; 94761; 96374; 96375; J1815

== ENCOUNTER 2018-04-17 14:34 | Inpatient (IN) | payer MEDICAID ==
[~2018-04-17] VITALS: Ht 172.7 cm; Wt 138.2 kg
[2018-04-17] MEDS ORDERED: SODIUM CHLORIDE 0.9% 1,000 ML IV ONE (16:02)
[2018-04-17] MEDS ORDERED: CLINDAMYCIN 600MG IV 50 ML IV ONE (16:15)
[2018-04-17] MEDS ORDERED: ACETAMINOPHEN 325 MG TAB PO ONE (17:00)
[2018-04-17] MEDS ORDERED: ONDANSETRON HCL 4 MG/2 ML VIAL IV ONE (17:00)
[2018-04-17] MEDS ORDERED: MORPHINE SULFATE 4 MG/ML SYR/VIAL IV ONE (17:00)
[2018-04-17] MEDS: SODIUM CHLORIDE 0.9% 1,000 ML IV SCH (17:10)
[2018-04-17 17:15] LABS: Basophils # (auto) 0 uL; Basophils % (auto) 0.3 % (0.0-2.0); Eosinophils # (auto) 0.3 uL; Eosinophils % (auto) 3.2 % (0.0-7.0); Hemoglobin 11.1 g/dL (12.2-16.2); Lymphocytes # (auto) 1.2 uL; Lymphocytes % (auto) 12.2 % (10.0-50.0); Mean Corpuscular Hemoglobin 27.1 pg (28.0-32.0); Mean Corpuscular Hgb Conc. 32.8 g/dL (32.0-36.0); Mean Corpuscular Volume 82.6 fL (80.0-100.0); Monocytes # (auto) 0.7 uL; Monocytes % (auto) 6.9 % (0.0-12.0); Neutrophils # (auto) 7.6 uL; Neutrophils % (auto) 77.4 % (37.0-80.0); Platelet Count (auto) 272 10^3/uL (140-450); Red Blood Cells 4.11 10^6/uL (4.0-5.20); Red Cell Distribution Width 13.3 % (11.8-14.3); White Blood Cell 9.8 10^3/uL (4.4-10.8)
[2018-04-17] MEDS ORDERED: LACTULOSE 20Gm/30ML SOLN PO PRN (17:15)
[2018-04-17] MEDS ORDERED: ALBUTEROL SULF 2 MG/5ML ORAL SYRUP PO PRN (17:15)
[2018-04-17] MEDS ORDERED: DEXTROSE (50%) 50ML SYRG IV PRN (17:15)
[2018-04-17] MEDS ORDERED: LEVOFLOXACIN 500MG 100 ML IV ONE (17:15)
[2018-04-17] MEDS ORDERED: NITROGLYCERIN 0.4 MG SL TAB SL PRN (17:15)
[2018-04-17] MEDS ORDERED: ONDANSETRON HCL 4 MG/2 ML VIAL IV PRN (17:15)
[2018-04-17] MEDS ORDERED: LORazepam 0.5 MG TAB PO PRN (17:15)
[2018-04-17] MEDS ORDERED: MORPHINE SULF INJ 2 MG/ML SYRINGE 1ML IV PRN (17:15)
[2018-04-17] MEDS ORDERED: ACETAMINOPHEN 500 MG TAB PO PRN (17:15)
[2018-04-17 17:28] LABS: Albumin 2.3 g/dL (3.4-5.0); BUN/Creatinine Ratio 18.8; Calcium 8.3 mg/dL (8.5-10.1); Potassium 4.5 mmol/L (3.5-5.1)
[2018-04-17 17:30] LABS: INR 0.89 (0.9-1.15); Partial Thromboplastin Time 28.9 sec (23.78-33.04); Prothrombin Time 9.6 sec (9.27-12.13)
[2018-04-17 17:31] LABS: Bilirubin, Total 0.3 mg/dL (0.2-1.0); Lactic Acid w/Reflex 2.2 mmol/L (0.4-2.0); Total Protein 7.6 g/dL (6.4-8.2)
[2018-04-17] MEDS: ACCU-CHEK COMFORT CURVE STRIP VI SCH ×2 (19:46→23:32)
[2018-04-17] MEDS: InsuLIN REG 1unit/0.01ml Soln (100units/ml) SC SCH ×2 (19:47→23:32)
[2018-04-17 20:00] VITALS: BP 95/58
[2018-04-17] MEDS: GABAPENTIN 300 MG CAP PO SCH (21:16)
[2018-04-17] MEDS: traZODone HCL 50 MG TAB PO SCH (21:16)
[2018-04-17] MEDS: INSULIN LANTUS (GLARGINE) 1 /0.01ml (100units/ml) SC SCH (21:17)
[2018-04-17] MEDS: MORPHINE SULF INJ 2 MG/ML SYRINGE 1ML IV PRN (21:32)
[2018-04-17 22:00] VITALS: BP 95/58
[2018-04-17] MEDS: CLINDAMYCIN 600MG IV 50 ML IV SCH (23:31)
[2018-04-18] MEDS: traMADol HCL 50 MG TAB PO PRN ×2 (03:51→21:11)
[2018-04-18] MEDS: ACCU-CHEK COMFORT CURVE STRIP VI SCH ×5 (03:51→19:49)
[2018-04-18] MEDS: InsuLIN REG 1unit/0.01ml Soln (100units/ml) SC SCH ×5 (03:52→19:49)
[2018-04-18] MEDS: SODIUM CHLORIDE 0.9% 1,000 ML IV SCH ×2 (04:04→14:27)
[2018-04-18 04:42] VITALS: BP 131/68
[2018-04-18] MEDS: GABAPENTIN 300 MG CAP PO SCH ×3 (05:24→21:11)
[2018-04-18] MEDS: CLINDAMYCIN 600MG IV 50 ML IV SCH ×3 (08:00→23:58)
[2018-04-18] MEDS: MORPHINE SULF INJ 2 MG/ML SYRINGE 1ML IV PRN ×3 (08:34→21:22)
[2018-04-18 09:00] VITALS: BP 135/78
[2018-04-18] MEDS ORDERED: BENAZEPRIL HCL 10 MG TAB PO SCH (10:00)
[2018-04-18] MEDS: FAMOTIDINE 20 MG TAB PO SCH (10:37)
[2018-04-18] MEDS: HCTZ 25 MG TAB PO SCH (10:37)
[2018-04-18] MEDS: ENOXAPARIN SOD 40 MG/0.4 ML SYRINGE SC SCH (10:38)
[2018-04-18] MEDS: INSULIN LANTUS (GLARGINE) 1 /0.01ml (100units/ml) SC SCH ×2 (10:43→21:13)
[2018-04-18] MEDS: SERTRALINE HCL 50 MG TAB PO SCH (11:05)
[2018-04-18 13:00] VITALS: BP 115/80
[2018-04-18] MEDS ORDERED: LIDOCAINE 1% (LOCAL ANESTH.) PF 5ml SDV ONE ×2 (15:04→15:07)
[2018-04-18 17:00] VITALS: BP 148/90
[2018-04-18] MEDS: LEVOFLOXACIN 500MG 100 ML IV SCH (18:34)
[2018-04-18] MEDS: traZODone HCL 50 MG TAB PO SCH (21:12)
[2018-04-18 21:59] VITALS: BP 170/88
[2018-04-19] MEDS: ACCU-CHEK COMFORT CURVE STRIP VI SCH ×7 (00:26→23:48)
[2018-04-19] MEDS: InsuLIN REG 1unit/0.01ml Soln (100units/ml) SC SCH ×7 (00:27→23:55)
[2018-04-19] MEDS: GABAPENTIN 300 MG CAP PO SCH ×3 (05:41→21:18)
[2018-04-19 05:46] VITALS: BP 129/59
[2018-04-19] MEDS: SODIUM CHLORIDE 0.9% 1,000 ML IV SCH ×2 (05:59→09:10)
[2018-04-19 06:55] LABS: Basophils # (auto) 0 uL; Basophils % (auto) 0.4 % (0.0-2.0); Eosinophils # (auto) 0.4 uL; Eosinophils % (auto) 3.8 % (0.0-7.0); Hematocrit 29.3 % (36.0-46.0); Hemoglobin 9.5 g/dL (12.2-16.2); Lymphocytes # (auto) 1.4 uL; Lymphocytes % (auto) 13.9 % (10.0-50.0); Mean Corpuscular Hemoglobin 27.1 pg (28.0-32.0); Mean Corpuscular Hgb Conc. 32.4 g/dL (32.0-36.0); Mean Corpuscular Volume 83.8 fL (80.0-100.0); Monocytes % (auto) 9.9 % (0.0-12.0); Neutrophils # (auto) 7.2 uL; Platelet Count (auto) 273 10^3/uL (140-450); Red Cell Distribution Width 13.4 % (11.8-14.3); White Blood Cell 10.1 10^3/uL (4.4-10.8)
[2018-04-19 07:17] LABS: Albumin 1.7 g/dL (3.4-5.0); Calcium 7.7 mg/dL (8.5-10.1)
[2018-04-19 07:20] LABS: BUN/Creatinine Ratio 15.8
[2018-04-19 07:24] LABS: Bilirubin, Total 0.2 mg/dL (0.2-1.0); Total Protein 6.1 g/dL (6.4-8.2)
[2018-04-19] MEDS: MORPHINE SULF INJ 2 MG/ML SYRINGE 1ML IV PRN ×4 (08:22→22:18)
[2018-04-19] MEDS: CLINDAMYCIN 600MG IV 50 ML IV SCH ×3 (08:22→23:47)
[2018-04-19 08:40] VITALS: BP 110/65
[2018-04-19] MEDS: ENOXAPARIN SOD 40 MG/0.4 ML SYRINGE SC SCH (10:44)
[2018-04-19] MEDS: FAMOTIDINE 20 MG TAB PO SCH (10:45)
[2018-04-19] MEDS: HCTZ 25 MG TAB PO SCH (10:45)
[2018-04-19] MEDS: SERTRALINE HCL 50 MG TAB PO SCH (10:45)
[2018-04-19] MEDS: INSULIN LANTUS (GLARGINE) 1 /0.01ml (100units/ml) SC SCH ×2 (10:46→21:19)
[2018-04-19 13:11] VITALS: BP 127/73
[2018-04-19 17:00] VITALS: BP 132/85
[2018-04-19] MEDS ORDERED: DAKINS QUARTER STR 0.125% (NaHypochlorite) 473 ML TOPICAL SOL TOP ONE (18:30)
[2018-04-19] MEDS: LEVOFLOXACIN 500MG 100 ML IV SCH (20:51)
[2018-04-19] MEDS: traZODone HCL 50 MG TAB PO SCH (21:18)
[2018-04-19 22:00] VITALS: BP 117/70
[2018-04-20] MEDS: SODIUM CHLORIDE 0.9% 1,000 ML IV SCH ×4 (02:33→23:48)
[2018-04-20] MEDS: ACCU-CHEK COMFORT CURVE STRIP VI SCH ×6 (03:49→23:48)
[2018-04-20] MEDS: InsuLIN REG 1unit/0.01ml Soln (100units/ml) SC SCH ×6 (03:49→23:49)
[2018-04-20] MEDS: GABAPENTIN 300 MG CAP PO SCH ×3 (05:36→22:01)
[2018-04-20 05:58] VITALS: BP 107/63
[2018-04-20 06:29] LABS: Basophils # (auto) 0 uL; Basophils % (auto) 0.4 % (0.0-2.0); Eosinophils # (auto) 0.5 uL; Eosinophils % (auto) 7.9 % (0.0-7.0); Hematocrit 27.4 % (36.0-46.0); Lymphocytes # (auto) 1.5 uL; Lymphocytes % (auto) 22.1 % (10.0-50.0); Mean Corpuscular Hemoglobin 27.5 pg (28.0-32.0); Mean Corpuscular Volume 83.3 fL (80.0-100.0); Monocytes # (auto) 0.6 uL; Monocytes % (auto) 9.4 % (0.0-12.0); Neutrophils # (auto) 4.1 uL; Neutrophils % (auto) 60.2 % (37.0-80.0); Platelet Count (auto) 282 10^3/uL (140-450); Red Blood Cells 3.28 10^6/uL (4.0-5.20); Red Cell Distribution Width 13.2 % (11.8-14.3); White Blood Cell 6.8 10^3/uL (4.4-10.8)
[2018-04-20 06:37] LABS: Albumin 1.6 g/dL (3.4-5.0); BUN/Creatinine Ratio 19.8; Calcium 7.6 mg/dL (8.5-10.1); Potassium 4.5 mmol/L (3.5-5.1)
[2018-04-20 06:40] LABS: Bilirubin, Total 0.2 mg/dL (0.2-1.0); Total Protein 6.1 g/dL (6.4-8.2)
[2018-04-20] MEDS: CLINDAMYCIN 600MG IV 50 ML IV SCH ×3 (08:16→23:48)
[2018-04-20] MEDS: MORPHINE SULF INJ 2 MG/ML SYRINGE 1ML IV PRN ×3 (08:16→22:00)
[2018-04-20 09:00] VITALS: BP 132/65
[2018-04-20] MEDS: HCTZ 25 MG TAB PO SCH (10:00)
[2018-04-20] MEDS: FAMOTIDINE 20 MG TAB PO SCH (10:00)
[2018-04-20] MEDS: ENOXAPARIN SOD 40 MG/0.4 ML SYRINGE SC SCH (10:00)
[2018-04-20] MEDS: SERTRALINE HCL 50 MG TAB PO SCH (10:00)
[2018-04-20] MEDS: INSULIN LANTUS (GLARGINE) 1 /0.01ml (100units/ml) SC SCH ×2 (10:00→22:02)
[2018-04-20 13:00] VITALS: BP 141/87
[2018-04-20] MEDS: LIDOCAINE 1% (LOCAL ANESTH.) PF 5ml SDV ONE ×2 (13:38→14:55)
[2018-04-20] MEDS ORDERED: PROPOFOL 10 MG/ML 20 ML IV ONE (13:42)
[2018-04-20] MEDS ORDERED: ONDANSETRON HCL 4 MG/2 ML VIAL ONE (13:42)
[2018-04-20] MEDS ORDERED: MIDAZOLAM HCL 1MG/1ML-2 ML VIAL ONE (13:42)
[2018-04-20] MEDS ORDERED: SODIUM CHLORIDE LOCK 10 ML ONE (13:42)
[2018-04-20] MEDS ORDERED: fentaNYL CITRATE 100 MCG/2 ML VL ONE (13:42)
[2018-04-20] MEDS ORDERED: BACITRACIN INJ 50000 UNIT VIAL ONE (14:20)
[2018-04-20] MEDS ORDERED: METOCLOPRAMIDE HCL 5MG/ml INJ 2ml VIAL IV ONE (14:45)
[2018-04-20] MEDS ORDERED: ACCU-CHEK COMFORT CURVE STRIP VI ONE (14:45)
[2018-04-20] MEDS ORDERED: MORPHINE SULFATE 4 MG/ML SYR/VIAL IV ONE (16:00)
[2018-04-20 17:00] VITALS: BP 116/71
[2018-04-20] MEDS: LEVOFLOXACIN 500MG 100 ML IV SCH (17:41)
[2018-04-20 21:59] VITALS: BP 141/73
[2018-04-20] MEDS: traZODone HCL 50 MG TAB PO SCH (22:01)
[2018-04-20] MEDS: traMADol HCL 50 MG TAB PO PRN (22:02)
[2018-04-21] MEDS: MORPHINE SULF INJ 2 MG/ML SYRINGE 1ML IV PRN ×4 (03:59→20:10)
[2018-04-21] MEDS: ACCU-CHEK COMFORT CURVE STRIP VI SCH ×6 (03:59→23:49)
[2018-04-21] MEDS: InsuLIN REG 1unit/0.01ml Soln (100units/ml) SC SCH ×6 (04:00→23:49)
[2018-04-21 05:08] VITALS: BP 106/58
[2018-04-21] MEDS: GABAPENTIN 300 MG CAP PO SCH ×3 (05:24→21:44)
[2018-04-21 06:38] LABS: BUN/Creatinine Ratio 20.9; Calcium 7.9 mg/dL (8.5-10.1); Potassium 4.3 mmol/L (3.5-5.1)
[2018-04-21 08:46] VITALS: BP 114/64
[2018-04-21] MEDS: CLINDAMYCIN 600MG IV 50 ML IV SCH (08:49)
[2018-04-21] MEDS: FAMOTIDINE 20 MG TAB PO SCH (09:20)
[2018-04-21] MEDS: SERTRALINE HCL 50 MG TAB PO SCH (09:20)
[2018-04-21] MEDS: HCTZ 25 MG TAB PO SCH (09:21)
[2018-04-21] MEDS: ENOXAPARIN SOD 40 MG/0.4 ML SYRINGE SC SCH (09:21)
[2018-04-21] MEDS: INSULIN LANTUS (GLARGINE) 1 /0.01ml (100units/ml) SC SCH ×2 (09:22→21:58)
[2018-04-21] MEDS ORDERED: VANCOMYCIN PER PHARMACY 0 MG IV SCH (10:00)
[2018-04-21] MEDS: VANCOMYCIN 1,250 MG in D5W 5% 250 ML IV SCH ×2 (11:00→23:14)
[2018-04-21 13:00] VITALS: BP 109/65
[2018-04-21] MEDS: SODIUM CHLORIDE 0.9% 1,000 ML IV SCH ×2 (13:34→21:10)
[2018-04-21] MEDS ORDERED: LIDOCAINE 1% (LOCAL ANESTH.) PF 5ml SDV ID ONE (15:00)
[2018-04-21 16:56] VITALS: BP 135/77
[2018-04-21] MEDS: LEVOFLOXACIN 500MG 100 ML IV SCH (19:08)
[2018-04-21] MEDS: traZODone HCL 50 MG TAB PO SCH (21:44)
[2018-04-21] MEDS: SODIUM CHLOR 0.9% PF (SALINE LOCK) 10ML VIAL/SYR IV SCH (21:46)
[2018-04-21 21:47] VITALS: BP 113/71
[2018-04-22] MEDS: ACCU-CHEK COMFORT CURVE STRIP VI SCH ×6 (03:51→23:59)
[2018-04-22] MEDS: InsuLIN REG 1unit/0.01ml Soln (100units/ml) SC SCH ×6 (03:51→23:59)
[2018-04-22] MEDS: MORPHINE SULF INJ 2 MG/ML SYRINGE 1ML IV PRN ×4 (04:15→20:43)
[2018-04-22 05:00] VITALS: BP 116/65
[2018-04-22] MEDS: GABAPENTIN 300 MG CAP PO SCH ×3 (05:53→21:51)
[2018-04-22 08:00] VITALS: BP 111/74
[2018-04-22 08:54] LABS: Basophils # (auto) 0 uL; Basophils % (auto) 0.7 % (0.0-2.0); Eosinophils # (auto) 0.6 uL; Eosinophils % (auto) 7.8 % (0.0-7.0); Hematocrit 29.2 % (36.0-46.0); Hemoglobin 9.5 g/dL (12.2-16.2); Lymphocytes # (auto) 1.7 uL; Lymphocytes % (auto) 23.8 % (10.0-50.0); Mean Corpuscular Hemoglobin 27.3 pg (28.0-32.0); Mean Corpuscular Hgb Conc. 32.7 g/dL (32.0-36.0); Mean Corpuscular Volume 83.6 fL (80.0-100.0); Monocytes # (auto) 0.6 uL; Monocytes % (auto) 7.9 % (0.0-12.0); Neutrophils # (auto) 4.2 uL; Neutrophils % (auto) 59.8 % (37.0-80.0); Platelet Count (auto) 317 10^3/uL (140-450); Red Blood Cells 3.49 10^6/uL (4.0-5.20); Red Cell Distribution Width 13.9 % (11.8-14.3); White Blood Cell 7.1 10^3/uL (4.4-10.8)
[2018-04-22] MEDS: HCTZ 25 MG TAB PO SCH (09:10)
[2018-04-22] MEDS: FAMOTIDINE 20 MG TAB PO SCH (09:11)
[2018-04-22] MEDS: ENOXAPARIN SOD 40 MG/0.4 ML SYRINGE SC SCH (09:11)
[2018-04-22] MEDS: SERTRALINE HCL 50 MG TAB PO SCH (09:11)
[2018-04-22] MEDS: INSULIN LANTUS (GLARGINE) 1 /0.01ml (100units/ml) SC SCH ×2 (09:12→22:24)
[2018-04-22] MEDS: SODIUM CHLORIDE 0.9% 1,000 ML IV SCH ×2 (09:13→17:27)
[2018-04-22] MEDS: SODIUM CHLOR 0.9% PF (SALINE LOCK) 10ML VIAL/SYR IV SCH ×2 (09:14→21:52)
[2018-04-22 09:30] LABS: Albumin 1.7 g/dL (3.4-5.0); Potassium 4.6 mmol/L (3.5-5.1)
[2018-04-22 09:32] LABS: Bilirubin, Total 0.1 mg/dL (0.2-1.0); Total Protein 6.5 g/dL (6.4-8.2)
[2018-04-22 12:00] VITALS: BP 144/79
[2018-04-22] MEDS: VANCOMYCIN 1,250 MG in D5W 5% 250 ML IV SCH ×2 (13:10→23:00)
[2018-04-22 14:22] VITALS: BP 111/74
[2018-04-22 16:00] VITALS: BP 124/69
[2018-04-22] MEDS: LEVOFLOXACIN 500MG 100 ML IV SCH (17:52)
[2018-04-22] MEDS: traZODone HCL 50 MG TAB PO SCH (21:52)
[2018-04-22 21:54] VITALS: BP 136/79
[2018-04-23] MEDS: SODIUM CHLORIDE 0.9% 1,000 ML IV SCH ×2 (03:10→12:13)
[2018-04-23] MEDS: ACCU-CHEK COMFORT CURVE STRIP VI SCH ×3 (03:59→11:45)
[2018-04-23] MEDS: InsuLIN REG 1unit/0.01ml Soln (100units/ml) SC SCH ×3 (03:59→11:45)
[2018-04-23] MEDS: MORPHINE SULF INJ 2 MG/ML SYRINGE 1ML IV PRN ×2 (04:43→10:17)
[2018-04-23 05:20] VITALS: BP 95/71
[2018-04-23] MEDS: GABAPENTIN 300 MG CAP PO SCH ×2 (05:50→12:13)
[2018-04-23 08:00] VITALS: BP 131/75
[2018-04-23 09:52] VITALS: BP 131/75
[2018-04-23] MEDS: INSULIN LANTUS (GLARGINE) 1 /0.01ml (100units/ml) SC SCH (10:00)
[2018-04-23] MEDS: SODIUM CHLOR 0.9% PF (SALINE LOCK) 10ML VIAL/SYR IV SCH (10:05)
[2018-04-23] MEDS: HCTZ 25 MG TAB PO SCH (10:06)
[2018-04-23] MEDS: SERTRALINE HCL 50 MG TAB PO SCH (10:07)
[2018-04-23] MEDS: FAMOTIDINE 20 MG TAB PO SCH (10:07)
[2018-04-23] MEDS: ENOXAPARIN SOD 40 MG/0.4 ML SYRINGE SC SCH (10:07)
[2018-04-23] MEDS ORDERED: VANCOMYCIN 1GM/250ML 250 ML IV SCH (11:00)
[2018-04-23 13:07] VITALS: BP 154/81
== END 2018-04-23 15:20 | disposition home or self-care (01) | DRG 305 ==
LOC: ER 14:34 → TELE 14:35 → TELE-CENTR 18:30
PROVIDERS: ADMIT Internal Medicine; ATTEND Internal Medicine
PROC: 02HV33Z Insertion of Infusion Device into Superior Vena Cava, Percutaneous Approach (ICD-10-PCS; principal; 2018-04-17)
PROC: 0Y6M0ZB Detachment at Right Foot, Partial 2nd Ray, Open Approach (ICD-10-PCS; 2018-04-20)
PROC: 0JBR0ZZ Excision of Left Foot Subcutaneous Tissue and Fascia, Open Approach (ICD-10-PCS; 2018-04-20)
PROC: 0JBQ0ZZ Excision of Right Foot Subcutaneous Tissue and Fascia, Open Approach (ICD-10-PCS; 2018-04-20)
DX: E11.621 Type 2 diabetes mellitus with foot ulcer (principal); E43 Unspecified severe protein-calorie malnutrition; E11.21 Type 2 diabetes mellitus with diabetic nephropathy; M86.8X7 Other osteomyelitis, ankle and foot; E66.01 Morbid (severe) obesity due to excess calories; E11.65 Type 2 diabetes mellitus with hyperglycemia; E11.69 Type 2 diabetes mellitus with other specified complication; L03.116 Cellulitis of left lower limb; L02.612 Cutaneous abscess of left foot; E87.1 Hypo-osmolality and hyponatremia; E78.5 Hyperlipidemia, unspecified; N18.9 Chronic kidney disease, unspecified; I12.9 Hypertensive chronic kidney disease with stage 1 through stage 4 chronic kidney disease, or unspecified chronic kidney disease; J45.909 Unspecified asthma, uncomplicated; E11.22 Type 2 diabetes mellitus with diabetic chronic kidney disease; L97.519 Non-pressure chronic ulcer of other part of right foot with unspecified severity; L97.529 Non-pressure chronic ulcer of other part of left foot with unspecified severity; Z89.411 Acquired absence of right great toe; Z83.3 Family history of diabetes mellitus; Z88.0 Allergy status to penicillin; Z91.19 Patient's noncompliance with other medical treatment and regimen; Z79.4 Long term (current) use of insulin; Z98.51 Tubal ligation status; Z68.42 Body mass index [BMI] 45.0-49.9, adult
CPT/HCPCS: 36415; 36569; 71045; 73630; 80048; 80053; 80202; 82962; 83036; 83605; 84702; 85025; 85610; 85652; 85730; 87040; 87070; 87075; 87076; 87077; 87186; 87205; 93005; 93926; 93971; 94761; 96361; 96365; 96375; J1815; J1956; J2250; J2405; J2704; J3490; J7060

== ENCOUNTER 2018-05-09 12:24 | Inpatient (IN) | payer MEDICAID ==
[~2018-05-09] VITALS: Ht 172.7 cm; Wt 153.4 kg
[2018-05-09] MEDS ORDERED: SODIUM CHLORIDE 0.9% 1,000 ML IV ONE (13:20)
[2018-05-09] MEDS ORDERED: ALBUTEROL SULF 2.5 MG/0.5ML(0.5%) NEB SOLN NEB ONE (13:30)
[2018-05-09] MEDS ORDERED: IPRATROPIUM BROM 0.5 MG/2.5ML INH SOL NEB ONE (13:30)
[2018-05-09 13:53] LABS: Urine Bacteria NONE SEEN /hpf (None Seen); Urine Blood Negative /uL (Negative); Urine Specific Gravity 1.012 (1.001-1.035); Urine WBC 9 /hpf (0 - 5)
[2018-05-09 13:59] LABS: Basophils # (auto) 0 uL; Basophils % (auto) 0.7 % (0.0-2.0); Eosinophils # (auto) 0.4 uL; Hematocrit 30.6 % (36.0-46.0); Hemoglobin 9.9 g/dL (12.2-16.2); Lymphocytes # (auto) 1.3 uL; Lymphocytes % (auto) 19.6 % (10.0-50.0); Mean Corpuscular Hemoglobin 27.1 pg (28.0-32.0); Mean Corpuscular Hgb Conc. 32.2 g/dL (32.0-36.0); Monocytes # (auto) 0.4 uL; Monocytes % (auto) 5.9 % (0.0-12.0); Neutrophils # (auto) 4.4 uL; Neutrophils % (auto) 67.8 % (37.0-80.0); Platelet Count (auto) 267 10^3/uL (140-450); Red Blood Cells 3.64 10^6/uL (4.0-5.20); Red Cell Distribution Width 14.3 % (11.8-14.3); White Blood Cell 6.6 10^3/uL (4.4-10.8)
[2018-05-09 14:15] LABS: Alanine Aminotransferase 12 U/L (13-56); Albumin 2.3 g/dL (3.4-5.0); Anion Gap 10 (5-15); Aspartate Aminotransferase 12 U/L (15-37); Blood Urea Nitrogen 26 mg/dL (7-18); Calcium 7.7 mg/dL (8.5-10.1); Carbon Dioxide 23 mmol/L (21-32); Chloride 106 mmol/L (98-107); GFR African American 55 mL/min; GFR Non-African American 45 mL/min; Glucose 184 mg/dL (74-106); Magnesium 2.2 mg/dL (1.6-2.6); Potassium 4.7 mmol/L (3.5-5.1); Sodium 139 mmol/L (136-145)
[2018-05-09 14:16] LABS: INR 0.87 (0.9-1.15); Partial Thromboplastin Time 30.1 sec (23.78-33.04); Prothrombin Time 9.4 sec (9.27-12.13)
[2018-05-09 14:20] LABS: Alkaline Phosphatase 111 U/L (45-117); Bilirubin, Total 0.2 mg/dL (0.2-1.0)
[2018-05-09 14:27] LABS: Beta HCG, Quantitative < 1 mlU/mL (1-3); Thyroid Stimulating Hormone 0.94 uIU/mL (0.358-3.74)
[2018-05-09] MEDS ORDERED: cefTRIAXone 1GM/10ml IVPUSH 10 ML IV ONE (15:45)
[2018-05-09] MEDS ORDERED: FUROSEMIDE 40 MG/4 ML VIAL IV ONE (16:30)
[2018-05-09] MEDS ORDERED: ENOXAPARIN SOD 80 MG/0.8ML SYRINGE SC ONE (16:30)
[2018-05-09] MEDS ORDERED: VANCOMYCIN PER PHARMACY 0 MG IV SCH (17:00)
[2018-05-09] MEDS ORDERED: traMADol HCL 50 MG TAB PO PRN (17:00)
[2018-05-09] MEDS ORDERED: POTASSIUM CHLORIDE 8 MEQ TAB PO ONE (17:00)
[2018-05-09] MEDS ORDERED: HCTZ 25 MG TAB PO ONE (17:00)
[2018-05-09] MEDS ORDERED: DEXTROSE (50%) 50ML SYRG IV PRN (17:00)
[2018-05-09] MEDS ORDERED: CLINDAMYCIN 300MG IV 50 ML IV ONE (17:15)
[2018-05-09] MEDS ORDERED: NITROGLYCERIN 0.4 MG SL TAB SL PRN (17:15)
[2018-05-09] MEDS ORDERED: DOCUSATE SOD 100 MG CAP PO PRN (17:15)
[2018-05-09] MEDS ORDERED: TEMAZEPAM 15 MG CAP PO PRN (17:15)
[2018-05-09] MEDS ORDERED: MORPHINE SULFATE 4 MG/ML SYR/VIAL IV PRN (17:15)
[2018-05-09] MEDS ORDERED: ACETAMINOPHEN 325 MG TAB PO PRN (17:15)
[2018-05-09] MEDS ORDERED: HYDROcodone-ACET 5/325MG TAB PO PRN (17:15)
[2018-05-09] MEDS: ACCU-CHEK COMFORT CURVE STRIP VI SCH ×2 (17:27→21:54)
[2018-05-09] MEDS: InsuLIN REG 1unit/0.01ml Soln (100units/ml) SC SCH ×2 (17:32→22:03)
[2018-05-09] MEDS: INSULIN LISPRO (HUMAN) 100 UNITS/ML ML SC SCH (17:32)
[2018-05-09] MEDS: ALBUTEROL SULF 2.5 MG/0.5ML(0.5%) NEB SOLN NEB SCH (18:30)
[2018-05-09] MEDS: IPRATROPIUM BROM 0.5 MG/2.5ML INH SOL NEB SCH (18:30)
[2018-05-09] MEDS: Glucerna Carbsteady SHAKE Vanilla 8oz PO SCH (18:41)
[2018-05-09 20:10] VITALS: BP 140/72
[2018-05-09 20:30] VITALS: BP 140/72
[2018-05-09 20:49] VITALS: BP 140/67
[2018-05-09] MEDS: traZODone HCL 50 MG TAB PO SCH (21:52)
[2018-05-09] MEDS: ASCORBIC ACID 500 MG TAB PO SCH (21:52)
[2018-05-09] MEDS: GABAPENTIN 300 MG CAP PO SCH (21:52)
[2018-05-09] MEDS: FAMOTIDINE 20 MG TAB PO SCH (21:52)
[2018-05-09] MEDS: BENAZEPRIL HCL 10 MG TAB PO SCH (21:53)
[2018-05-09] MEDS: SODIUM CHLOR 0.9% PF (SALINE LOCK) 10ML VIAL/SYR IV SCH (21:53)
[2018-05-09] MEDS: INSULIN LANTUS (GLARGINE) 1 /0.01ml (100units/ml) SC SCH (22:00)
[2018-05-10] MEDS: ALBUTEROL SULF 2.5 MG/0.5ML(0.5%) NEB SOLN NEB SCH ×4 (00:36→19:43)
[2018-05-10] MEDS: IPRATROPIUM BROM 0.5 MG/2.5ML INH SOL NEB SCH ×4 (00:36→19:43)
[2018-05-10] MEDS ORDERED: CLINDAMYCIN 300MG IV 50 ML IV SCH (02:00)
[2018-05-10 05:00] VITALS: BP 112/59
[2018-05-10] MEDS: GABAPENTIN 300 MG CAP PO SCH ×3 (05:41→22:03)
[2018-05-10] MEDS: SODIUM CHLOR 0.9% PF (SALINE LOCK) 10ML VIAL/SYR IV SCH ×3 (05:45→19:29)
[2018-05-10] MEDS: INSULIN LISPRO (HUMAN) 100 UNITS/ML ML SC SCH ×3 (05:46→17:00)
[2018-05-10] MEDS: InsuLIN REG 1unit/0.01ml Soln (100units/ml) SC SCH ×4 (05:46→22:04)
[2018-05-10] MEDS: ACCU-CHEK COMFORT CURVE STRIP VI SCH ×4 (05:47→22:05)
[2018-05-10] MEDS: ONDANSETRON HCL 4 MG/2 ML VIAL IV PRN ×3 (06:00→19:29)
[2018-05-10 06:07] LABS: Basophils # (auto) 0 uL; Basophils % (auto) 0.2 % (0.0-2.0); Eosinophils # (auto) 0.7 uL; Eosinophils % (auto) 11.1 % (0.0-7.0); Hematocrit 29.5 % (36.0-46.0); Hemoglobin 9.5 g/dL (12.2-16.2); Lymphocytes # (auto) 1.4 uL; Lymphocytes % (auto) 23.2 % (10.0-50.0); Mean Corpuscular Hemoglobin 27.2 pg (28.0-32.0); Mean Corpuscular Hgb Conc. 32.3 g/dL (32.0-36.0); Mean Corpuscular Volume 84.2 fL (80.0-100.0); Monocytes # (auto) 0.5 uL; Monocytes % (auto) 8.5 % (0.0-12.0); Neutrophils # (auto) 3.4 uL; Platelet Count (auto) 262 10^3/uL (140-450); Red Cell Distribution Width 14.2 % (11.8-14.3)
[2018-05-10 06:33] LABS: Potassium 4.8 mmol/L (3.5-5.1)
[2018-05-10 06:37] LABS: Albumin 2.2 g/dL (3.4-5.0); BUN/Creatinine Ratio 20.1; Calcium 8.2 mg/dL (8.5-10.1); Total Protein 6.8 g/dL (6.4-8.2)
[2018-05-10 06:42] LABS: Bilirubin, Total 0.2 mg/dL (0.2-1.0)
[2018-05-10 08:00] VITALS: BP 140/72
[2018-05-10] MEDS: Glucerna Carbsteady SHAKE Vanilla 8oz PO SCH ×3 (08:00→18:09)
[2018-05-10 08:56] VITALS: BP 144/77
[2018-05-10] MEDS: FAMOTIDINE 20 MG TAB PO SCH ×2 (09:49→22:03)
[2018-05-10] MEDS: BENAZEPRIL HCL 10 MG TAB PO SCH ×2 (09:49→22:04)
[2018-05-10] MEDS: ENOXAPARIN SOD 40 MG/0.4 ML SYRINGE SC SCH (09:49)
[2018-05-10] MEDS: SERTRALINE HCL 50 MG TAB PO SCH (09:50)
[2018-05-10] MEDS: ZINC SULFATE 220mg CAP or TAB PO SCH (09:50)
[2018-05-10] MEDS: ASCORBIC ACID 500 MG TAB PO SCH ×2 (09:51→22:03)
[2018-05-10] MEDS: MULTIPLE VITAMIN TAB PO SCH (09:51)
[2018-05-10] MEDS: POTASSIUM CHLORIDE 8 MEQ TAB PO SCH (09:51)
[2018-05-10] MEDS: HCTZ 25 MG TAB PO SCH (09:51)
[2018-05-10] MEDS ORDERED: ONDANSETRON ODT 4 MG TAB PO ONE (10:00)
[2018-05-10] MEDS ORDERED: VANCOMYCIN 1GM/250ML 250 ML IV SCH (11:00)
[2018-05-10 13:00] VITALS: BP 157/83
[2018-05-10 17:18] VITALS: BP 129/86
[2018-05-10] MEDS ORDERED: LIDOCAINE 1% (LOCAL ANESTH.) PF 5ml SDV ID ONE (17:30)
[2018-05-10] MEDS: VANCOMYCIN 1GM/250ML 250 ML IV SCH (17:34)
[2018-05-10] MEDS: MORPHINE SULFATE 4 MG/ML SYR/VIAL IV PRN ×2 (18:36→23:06)
[2018-05-10 22:00] VITALS: BP 162/78
[2018-05-10] MEDS: INSULIN LANTUS (GLARGINE) 1 /0.01ml (100units/ml) SC SCH (22:00)
[2018-05-10] MEDS: traZODone HCL 50 MG TAB PO SCH (22:03)
[2018-05-11] MEDS: IPRATROPIUM BROM 0.5 MG/2.5ML INH SOL NEB SCH ×4 (01:10→19:42)
[2018-05-11] MEDS: ALBUTEROL SULF 2.5 MG/0.5ML(0.5%) NEB SOLN NEB SCH ×4 (01:10→19:41)
[2018-05-11] MEDS: ONDANSETRON HCL 4 MG/2 ML VIAL IV PRN ×6 (01:34→22:41)
[2018-05-11] MEDS: GABAPENTIN 300 MG CAP PO SCH ×3 (04:57→20:41)
[2018-05-11] MEDS: VANCOMYCIN 1GM/250ML 250 ML IV SCH ×2 (04:57→18:39)
[2018-05-11 05:00] VITALS: BP 117/58
[2018-05-11] MEDS: InsuLIN REG 1unit/0.01ml Soln (100units/ml) SC SCH ×4 (05:17→20:37)
[2018-05-11] MEDS: ACCU-CHEK COMFORT CURVE STRIP VI SCH ×4 (05:18→20:38)
[2018-05-11] MEDS: INSULIN LISPRO (HUMAN) 100 UNITS/ML ML SC SCH ×3 (05:19→17:00)
[2018-05-11] MEDS: MORPHINE SULFATE 4 MG/ML SYR/VIAL IV PRN ×5 (05:44→22:41)
[2018-05-11 06:42] LABS: Basophils # (auto) 0 uL; Basophils % (auto) 0.7 % (0.0-2.0); Eosinophils # (auto) 0.4 uL; Eosinophils % (auto) 6.5 % (0.0-7.0); Hematocrit 29.6 % (36.0-46.0); Hemoglobin 9.5 g/dL (12.2-16.2); Lymphocytes # (auto) 1.4 uL; Lymphocytes % (auto) 23.3 % (10.0-50.0); Mean Corpuscular Hgb Conc. 32.2 g/dL (32.0-36.0); Mean Corpuscular Volume 83.9 fL (80.0-100.0); Monocytes # (auto) 0.5 uL; Monocytes % (auto) 8.7 % (0.0-12.0); Neutrophils # (auto) 3.7 uL; Neutrophils % (auto) 60.8 % (37.0-80.0); Nucleated Red Blood Cells % 0.1 %; Platelet Count (auto) 233 10^3/uL (140-450); Red Blood Cells 3.53 10^6/uL (4.0-5.20)
[2018-05-11 06:58] LABS: Potassium 4.6 mmol/L (3.5-5.1)
[2018-05-11] MEDS ORDERED: INFLUENZA QUAD 2018-2019 0.5 ML SYRG IM ONE (07:00)
[2018-05-11 07:11] LABS: BUN/Creatinine Ratio 15.1; Calcium 8.2 mg/dL (8.5-10.1)
[2018-05-11 09:00] VITALS: BP 162/79
[2018-05-11] MEDS: MULTIPLE VITAMIN TAB PO SCH (10:10)
[2018-05-11] MEDS: HCTZ 25 MG TAB PO SCH (10:12)
[2018-05-11] MEDS: ZINC SULFATE 220mg CAP or TAB PO SCH (10:13)
[2018-05-11] MEDS: FAMOTIDINE 20 MG TAB PO SCH ×2 (10:13→20:39)
[2018-05-11] MEDS: BENAZEPRIL HCL 10 MG TAB PO SCH ×2 (10:13→20:40)
[2018-05-11] MEDS: SERTRALINE HCL 50 MG TAB PO SCH (10:14)
[2018-05-11] MEDS: POTASSIUM CHLORIDE 8 MEQ TAB PO SCH (10:14)
[2018-05-11] MEDS: SODIUM CHLOR 0.9% PF (SALINE LOCK) 10ML VIAL/SYR IV SCH ×2 (10:15→20:41)
[2018-05-11] MEDS: Glucerna Carbsteady SHAKE Vanilla 8oz PO SCH ×3 (10:15→18:00)
[2018-05-11] MEDS: ASCORBIC ACID 500 MG TAB PO SCH ×2 (11:09→20:39)
[2018-05-11] MEDS: ENOXAPARIN SOD 40 MG/0.4 ML SYRINGE SC SCH (11:10)
[2018-05-11 12:35] VITALS: BP 156/81
[2018-05-11 17:05] VITALS: BP 140/74
[2018-05-11] MEDS: INSULIN LANTUS (GLARGINE) 1 /0.01ml (100units/ml) SC SCH (20:38)
[2018-05-11] MEDS: traZODone HCL 50 MG TAB PO SCH (20:40)
[2018-05-11 21:42] VITALS: BP 157/74
[2018-05-12] MEDS: IPRATROPIUM BROM 0.5 MG/2.5ML INH SOL NEB SCH ×4 (00:55→18:00)
[2018-05-12] MEDS: ALBUTEROL SULF 2.5 MG/0.5ML(0.5%) NEB SOLN NEB SCH ×4 (00:55→18:00)
[2018-05-12] MEDS: ONDANSETRON HCL 4 MG/2 ML VIAL IV PRN ×3 (04:05→17:01)
[2018-05-12] MEDS: VANCOMYCIN 1GM/250ML 250 ML IV SCH ×2 (04:17→18:18)
[2018-05-12] MEDS: GABAPENTIN 300 MG CAP PO SCH ×3 (04:17→20:28)
[2018-05-12] MEDS: MORPHINE SULFATE 4 MG/ML SYR/VIAL IV PRN ×4 (04:20→22:32)
[2018-05-12 04:37] VITALS: BP 146/75
[2018-05-12] MEDS: INSULIN LISPRO (HUMAN) 100 UNITS/ML ML SC SCH ×3 (05:49→17:00)
[2018-05-12] MEDS: InsuLIN REG 1unit/0.01ml Soln (100units/ml) SC SCH ×5 (05:49→20:45)
[2018-05-12] MEDS: ACCU-CHEK COMFORT CURVE STRIP VI SCH ×4 (05:50→20:41)
[2018-05-12 07:59] VITALS: BP 122/62
[2018-05-12] MEDS: ENOXAPARIN SOD 40 MG/0.4 ML SYRINGE SC SCH (10:19)
[2018-05-12] MEDS: ZINC SULFATE 220mg CAP or TAB PO SCH (10:20)
[2018-05-12] MEDS: MULTIPLE VITAMIN TAB PO SCH (10:20)
[2018-05-12] MEDS: POTASSIUM CHLORIDE 8 MEQ TAB PO SCH (10:20)
[2018-05-12] MEDS: BENAZEPRIL HCL 10 MG TAB PO SCH ×2 (10:20→20:29)
[2018-05-12] MEDS: FAMOTIDINE 20 MG TAB PO SCH ×2 (10:20→20:28)
[2018-05-12] MEDS: HCTZ 25 MG TAB PO SCH (10:21)
[2018-05-12] MEDS: SERTRALINE HCL 50 MG TAB PO SCH (10:21)
[2018-05-12] MEDS: SODIUM CHLOR 0.9% PF (SALINE LOCK) 10ML VIAL/SYR IV SCH ×2 (10:22→20:29)
[2018-05-12] MEDS: Glucerna Carbsteady SHAKE Vanilla 8oz PO SCH ×3 (10:23→18:10)
[2018-05-12] MEDS: ASCORBIC ACID 500 MG TAB PO SCH ×2 (10:25→20:28)
[2018-05-12] MEDS: KETOROLAC TROMETH 30 MG/ML 1ML VIAL IV PRN ×3 (10:26→23:14)
[2018-05-12 12:21] VITALS: BP 157/75
[2018-05-12 16:53] VITALS: BP 142/68
[2018-05-12] MEDS ORDERED: INFLUENZA QUAD 2018-2019 0.5 ML SYRG IM ONE (20:05)
[2018-05-12] MEDS: traZODone HCL 50 MG TAB PO SCH (20:28)
[2018-05-12] MEDS: INSULIN LANTUS (GLARGINE) 1 /0.01ml (100units/ml) SC SCH (20:39)
[2018-05-12 20:58] VITALS: BP 138/97
[2018-05-12 21:30] VITALS: BP 138/97
[2018-05-13] MEDS: ALBUTEROL SULF 2.5 MG/0.5ML(0.5%) NEB SOLN NEB SCH ×3 (00:53→11:34)
[2018-05-13] MEDS: IPRATROPIUM BROM 0.5 MG/2.5ML INH SOL NEB SCH ×3 (00:53→11:34)
[2018-05-13] MEDS: INSULIN LISPRO (HUMAN) 100 UNITS/ML ML SC SCH ×2 (04:34→11:58)
[2018-05-13 05:00] VITALS: BP 99/57
[2018-05-13] MEDS: KETOROLAC TROMETH 30 MG/ML 1ML VIAL IV PRN ×2 (05:24→13:31)
[2018-05-13] MEDS: GABAPENTIN 300 MG CAP PO SCH ×2 (05:24→13:37)
[2018-05-13] MEDS: VANCOMYCIN 1GM/250ML 250 ML IV SCH (05:24)
[2018-05-13] MEDS: ONDANSETRON HCL 4 MG/2 ML VIAL IV PRN (05:31)
[2018-05-13] MEDS: ACCU-CHEK COMFORT CURVE STRIP VI SCH ×2 (05:34→11:58)
[2018-05-13] MEDS: InsuLIN REG 1unit/0.01ml Soln (100units/ml) SC SCH ×2 (05:34→11:58)
[2018-05-13 06:29] LABS: Basophils # (auto) 0 uL; Basophils % (auto) 0.6 % (0.0-2.0); Eosinophils # (auto) 0.6 uL; Eosinophils % (auto) 8.2 % (0.0-7.0); Hematocrit 29.1 % (36.0-46.0); Hemoglobin 9.5 g/dL (12.2-16.2); Lymphocytes # (auto) 1.7 uL; Lymphocytes % (auto) 25.1 % (10.0-50.0); Mean Corpuscular Hgb Conc. 32.6 g/dL (32.0-36.0); Monocytes # (auto) 0.7 uL; Monocytes % (auto) 10.5 % (0.0-12.0); Neutrophils # (auto) 3.8 uL; Neutrophils % (auto) 55.6 % (37.0-80.0); Platelet Count (auto) 249 10^3/uL (140-450); Red Cell Distribution Width 13.9 % (11.8-14.3); White Blood Cell 6.9 10^3/uL (4.4-10.8)
[2018-05-13 06:46] LABS: Albumin 2.2 g/dL (3.4-5.0); Potassium 4.2 mmol/L (3.5-5.1)
[2018-05-13 06:47] LABS: BUN/Creatinine Ratio 11.2
[2018-05-13 06:49] LABS: Bilirubin, Total 0.3 mg/dL (0.2-1.0); Total Protein 6.6 g/dL (6.4-8.2)
[2018-05-13] MEDS: Glucerna Carbsteady SHAKE Vanilla 8oz PO SCH ×2 (08:00→12:00)
[2018-05-13 09:00] VITALS: BP 167/89
[2018-05-13] MEDS: FAMOTIDINE 20 MG TAB PO SCH (09:43)
[2018-05-13] MEDS: SODIUM CHLOR 0.9% PF (SALINE LOCK) 10ML VIAL/SYR IV SCH (09:43)
[2018-05-13] MEDS: SERTRALINE HCL 50 MG TAB PO SCH (09:44)
[2018-05-13] MEDS: POTASSIUM CHLORIDE 8 MEQ TAB PO SCH (09:45)
[2018-05-13] MEDS: ASCORBIC ACID 500 MG TAB PO SCH (09:45)
[2018-05-13] MEDS: MULTIPLE VITAMIN TAB PO SCH (09:45)
[2018-05-13] MEDS: HCTZ 25 MG TAB PO SCH (09:47)
[2018-05-13] MEDS: ENOXAPARIN SOD 40 MG/0.4 ML SYRINGE SC SCH (09:47)
[2018-05-13] MEDS: BENAZEPRIL HCL 10 MG TAB PO SCH (09:47)
[2018-05-13] MEDS: ZINC SULFATE 220mg CAP or TAB PO SCH (09:48)
[2018-05-13] MEDS: MORPHINE SULFATE 4 MG/ML SYR/VIAL IV PRN (09:49)
[2018-05-13 13:00] VITALS: BP 117/56
== END 2018-05-13 16:00 | disposition home health service (06) | DRG 344 ==
LOC: ER 12:24 → TELE 12:25 → TELE-WESTW 19:50
PROVIDERS: ADMIT Internal Medicine; ATTEND Internal Medicine
PROC: 02HV33Z Insertion of Infusion Device into Superior Vena Cava, Percutaneous Approach (ICD-10-PCS; principal; 2018-05-10)
DX: E11.621 Type 2 diabetes mellitus with foot ulcer (principal); M86.8X7 Other osteomyelitis, ankle and foot; E43 Unspecified severe protein-calorie malnutrition; D68.9 Coagulation defect, unspecified; E11.21 Type 2 diabetes mellitus with diabetic nephropathy; E11.22 Type 2 diabetes mellitus with diabetic chronic kidney disease; E66.01 Morbid (severe) obesity due to excess calories; E11.69 Type 2 diabetes mellitus with other specified complication; N18.3 Chronic kidney disease, stage 3 (moderate); E83.51 Hypocalcemia; L03.115 Cellulitis of right lower limb; K21.9 Gastro-esophageal reflux disease without esophagitis; L03.116 Cellulitis of left lower limb; I12.9 Hypertensive chronic kidney disease with stage 1 through stage 4 chronic kidney disease, or unspecified chronic kidney disease; L84 Corns and callosities; D63.8 Anemia in other chronic diseases classified elsewhere; H91.92 Unspecified hearing loss, left ear; F32.9 Major depressive disorder, single episode, unspecified; G43.909 Migraine, unspecified, not intractable, without status migrainosus; J45.901 Unspecified asthma with (acute) exacerbation; L97.529 Non-pressure chronic ulcer of other part of left foot with unspecified severity; L97.519 Non-pressure chronic ulcer of other part of right foot with unspecified severity; Z98.51 Tubal ligation status; Z83.3 Family history of diabetes mellitus; Z68.43 Body mass index [BMI] 50.0-59.9, adult; Z88.0 Allergy status to penicillin
CPT/HCPCS: 36415; 36569; 70450; 71045; 71046; 80048; 80053; 80202; 81001; 82962; 83036; 83605; 83735; 83880; 84443; 84484; 84702; 85025; 85379; 85610; 85652; 85730; 87040; 87070; 87081; 87086; 90674; 93005; 93970; 94640; 94761; 96372; 96374; 96375; 97110; 97116; 97163; 97530; J0696; J1815; J1885; J2405; J3490; Q0162

== ENCOUNTER 2018-05-14 13:52 | Emergency (ER) | payer MEDICAID ==
[~2018-05-14] VITALS: Ht 172.7 cm; Wt 117.9 kg
[2018-05-14 14:17] VITALS: BP 143/83
== END 2018-05-14 16:53 | disposition left against medical advice (07) ==
LOC: ER 13:52
DX: M79.622 Pain in left upper arm (principal); Z45.2 Encounter for adjustment and management of vascular access device; Z53.21 Procedure and treatment not carried out due to patient leaving prior to being seen by health care provider

== ENCOUNTER 2018-06-09 13:10 | Emergency (ER) | payer MEDICAID ==
[~2018-06-09] VITALS: Ht 172.7 cm; Wt 127.0 kg
[2018-06-09 14:18] LABS: Basophils # (auto) 0 uL; Basophils % (auto) 0.5 % (0.0-2.0); Eosinophils # (auto) 0.7 uL; Eosinophils % (auto) 8.5 % (0.0-7.0); Hematocrit 33.6 % (36.0-46.0); Hemoglobin 10.7 g/dL (12.2-16.2); Lymphocytes # (auto) 1.9 uL; Lymphocytes % (auto) 23.1 % (10.0-50.0); Mean Corpuscular Hemoglobin 26.8 pg (28.0-32.0); Mean Corpuscular Hgb Conc. 31.9 g/dL (32.0-36.0); Mean Corpuscular Volume 83.9 fL (80.0-100.0); Monocytes # (auto) 0.6 uL; Monocytes % (auto) 7.1 % (0.0-12.0); Neutrophils % (auto) 60.8 % (37.0-80.0); Platelet Count (auto) 321 10^3/uL (140-450); Red Blood Cells 4.01 10^6/uL (4.0-5.20); Red Cell Distribution Width 14.6 % (11.8-14.3); White Blood Cell 8.3 10^3/uL (4.4-10.8)
[2018-06-09 14:48] LABS: Albumin 2.8 g/dL (3.4-5.0); Anion Gap 5 (5-15); Calcium 8.3 mg/dL (8.5-10.1); Carbon Dioxide 25 mmol/L (21-32); Chloride 110 mmol/L (98-107); Glucose 175 mg/dL (74-106); Potassium 4.4 mmol/L (3.5-5.1); Sodium 140 mmol/L (136-145)
[2018-06-09 14:54] LABS: Alanine Aminotransferase 13 U/L (13-56); Alkaline Phosphatase 116 U/L (45-117); Aspartate Aminotransferase 17 U/L (15-37); Bilirubin, Total 0.3 mg/dL (0.2-1.0); GFR African American 49 mL/min; GFR Non-African American 41 mL/min; Total Protein 7.5 g/dL (6.4-8.2)
[2018-06-09 15:08] LABS: BUN/Creatinine Ratio 19.9; Blood Urea Nitrogen 30 mg/dL (7-18)
[2018-06-09 18:10] VITALS: BP 139/85
== END 2018-06-09 18:14 | disposition home or self-care (01) ==
LOC: ER 13:10
DX: R07.89 Other chest pain (principal); E11.21 Type 2 diabetes mellitus with diabetic nephropathy; E66.01 Morbid (severe) obesity due to excess calories; D63.8 Anemia in other chronic diseases classified elsewhere; M25.571 Pain in right ankle and joints of right foot; Z68.41 Body mass index [BMI] 40.0-44.9, adult; Z79.4 Long term (current) use of insulin; Z98.890 Other specified postprocedural states
CPT/HCPCS: 36415; 71046; 80053; 83735; 84443; 84484; 85025; 87040; 93005; 94761

== ENCOUNTER 2018-06-11 10:15 | Emergency (ER) | payer MEDICAID ==
[~2018-06-11] VITALS: Ht 172.7 cm; Wt 113.4 kg
[2018-06-11 11:05] VITALS: BP 150/66
== END 2018-06-11 11:42 | disposition home or self-care (01) ==
LOC: ER 10:15
DX: Z45.2 Encounter for adjustment and management of vascular access device (principal); J45.909 Unspecified asthma, uncomplicated; E11.9 Type 2 diabetes mellitus without complications; K21.9 Gastro-esophageal reflux disease without esophagitis; I10 Essential (primary) hypertension; Z88.0 Allergy status to penicillin; Z79.899 Other long term (current) drug therapy; Z79.4 Long term (current) use of insulin

== ENCOUNTER 2019-06-17 16:01 | Emergency (ER) | payer MEDICAID ==
[~2019-06-17] VITALS: Ht 172.7 cm; Wt 117.9 kg
[~2019-06-17 16:01] MED LIST changes: +ALPR0.25 PO; +AML5T PO; -BENA20TA14 PO; +GLIP5TAB12 PO; -METF-372 PO; -SERT-160 PO; +SERT-274 PO
[2019-06-17 16:40] LABS: Basophils # (auto) 0 uL; Hemoglobin 10.7 g/dL (12.2-16.2); Monocytes # (auto) 0.5 uL; Monocytes % (auto) 6.1 % (0.0-12.0); Neutrophils # (auto) 6.3 uL; White Blood Cell 8.9 10^3/uL (4.4-10.8)
[2019-06-17 16:41] LABS: Basophils % (auto) 0.5 % (0.0-2.0); Eosinophils # (auto) 0.5 uL; Eosinophils % (auto) 5.7 % (0.0-7.0); Hematocrit 32.9 % (36.0-46.0); Lymphocytes # (auto) 1.5 uL; Lymphocytes % (auto) 17.2 % (10.0-50.0); Mean Corpuscular Hemoglobin 25.8 pg (28.0-32.0); Mean Corpuscular Hgb Conc. 32.5 g/dL (32.0-36.0); Mean Corpuscular Volume 79.3 fL (80.0-100.0); Neutrophils % (auto) 70.5 % (37.0-80.0); Platelet Count (auto) 310 10^3/uL (140-450); Red Blood Cells 4.15 10^6/uL (4.0-5.20); Red Cell Distribution Width 15.6 % (11.8-14.3)
[2019-06-17 17:19] LABS: Albumin 2.2 g/dL (3.4-5.0); Anion Gap 6 (5-15); BUN/Creatinine Ratio 18.3; Blood Urea Nitrogen 31 mg/dL (7-18); Calcium 8.9 mg/dL (8.5-10.1); Carbon Dioxide 24 mmol/L (21-32); Chloride 109 mmol/L (98-107); GFR African American 43 mL/min; GFR Non-African American 35 mL/min; Glucose 136 mg/dL (74-106); Potassium 4.4 mmol/L (3.5-5.1); Sodium 139 mmol/L (136-145)
[2019-06-17 17:37] LABS: Alanine Aminotransferase 13 U/L (13-56); Alkaline Phosphatase 144 U/L (45-117); Aspartate Aminotransferase 14 U/L (15-37); Bilirubin, Total 0.2 mg/dL (0.2-1.0); Total Protein 7.6 g/dL (6.4-8.2)
[2019-06-17] MEDS ORDERED: ALBUTEROL SULF 2.5 MG/0.5ML(0.5%) NEB SOLN NEB ONE (23:00)
[2019-06-17] MEDS ORDERED: IPRATROPIUM BROM 0.5 MG/2.5ML INH SOL NEB ONE (23:00)
[2019-06-17 23:35] LABS: Urine Bacteria FEW /hpf (None Seen); Urine Blood TRACE /uL (Negative); Urine Specific Gravity 1.013 (1.001-1.035); Urine WBC 2 /hpf (0 - 5)
[2019-06-17 23:49] LABS: Alcohol, Urine < 3.0 mg/dL (0-5); Amphetamine Screen, Urine NEGATIVE (NEGATIVE); Barbiturate Scree,Urine NEGATIVE (NEGATIVE); Benzodiazephine Screen, Urine NEGATIVE (NEGATIVE); Cannabinoid Screen, Urine NEGATIVE (NEGATIVE); Cocaine Screen, Urine NEGATIVE (NEGATIVE); Opiate Scree,Urine NEGATIVE (NEGATIVE); Phencyclidine Screen, Urine NEGATIVE (NEGATIVE)
[2019-06-18] VITALS: BP 118/64
== END 2019-06-18 01:34 | disposition home or self-care (01) ==
LOC: EDBD 16:01 → ER 16:04
DX: E11.649 Type 2 diabetes mellitus with hypoglycemia without coma (principal); K21.9 Gastro-esophageal reflux disease without esophagitis; I10 Essential (primary) hypertension; J45.909 Unspecified asthma, uncomplicated; Z88.0 Allergy status to penicillin; Z79.4 Long term (current) use of insulin; Z79.899 Other long term (current) drug therapy
CPT/HCPCS: 36415; 70450; 71045; 80053; 80307; 80320; 81001; 81025; 84484; 85025; 93005; 94640; 99284; J7611; J7644

== ENCOUNTER 2020-05-30 14:30 | Inpatient (IN) | payer MEDICAID ==
[~2020-05-30] VITALS: Ht 172.7 cm; Wt 144.5 kg
[~2020-05-30 14:30] MED LIST changes: -ALBU1SYP PO; +ALBU2SYP10 PO; -AML5T PO; -FAM20T PO; +FAMO20TA10 PO; -HYDR25TA4 PO; +PRED20TA2 PO; -TRAZ100T2 PO; +TRAZ100T3 PO
[2020-05-30 15:09] LABS: Basophils # (auto) 0 10 ^3/uL (0-0.2); Basophils % (auto) 0.4 % (0.0-2.0); Eosinophils # (auto) 0.7 10 ^3/uL (0-0.8); Eosinophils % (auto) 8.4 % (0.0-7.0); Hematocrit 26.7 % (36.0-46.0); Hemoglobin 8.5 g/dL (12.2-16.2); Lymphocytes # (auto) 1.1 10 ^3/uL (0.4-5.4); Lymphocytes % (auto) 13.9 % (10.0-50.0); Mean Corpuscular Hgb Conc. 31.6 g/dL (32.0-36.0); Mean Corpuscular Volume 85.2 fL (80.0-100.0); Monocytes # (auto) 0.6 10 ^3/uL (0-1.3); Monocytes % (auto) 7.1 % (0.0-12.0); Neutrophils # (auto) 5.7 10 ^3/uL (1.6-8.6); Neutrophils % (auto) 70.2 % (37.0-80.0); Platelet Count (auto) 374 10^3/uL (140-450); Red Blood Cells 3.14 10^6/uL (4.0-5.20); White Blood Cell 8.1 10^3/uL (4.4-10.8)
[2020-05-30 15:28] LABS: Anion Gap 9 (5-15); BUN/Creatinine Ratio 12.1; Blood Urea Nitrogen 30 mg/dL (7-18); Carbon Dioxide 19 mmol/L (21-32); Chloride 108 mmol/L (98-107); GFR African American 27 mL/min; Glucose 325 mg/dL (74-106); Potassium 4.7 mmol/L (3.5-5.1); Sodium 136 mmol/L (136-145)
[2020-05-30 15:29] LABS: Alanine Aminotransferase 8 U/L (13-56); Albumin 1.5 g/dL (3.4-5.0); Aspartate Aminotransferase 11 U/L (15-37); Calcium 8.1 mg/dL (8.5-10.1); GFR Non-African American 23 mL/min
[2020-05-30 15:31] LABS: Alkaline Phosphatase 169 U/L (45-117); Bilirubin, Total 0.2 mg/dL (0.2-1.0); Total Protein 6.8 g/dL (6.4-8.2)
[2020-05-30] MEDS ORDERED: ONDANSETRON HCL 4 MG/2 ML VIAL IV ONE (15:45)
[2020-05-30] MEDS ORDERED: SODIUM CHLORIDE 0.9% 500 ML IV ONE (15:45)
[2020-05-30] MEDS ORDERED: HYDROmorphone HCL 2 MG/ML VL IV ONE (15:45)
[2020-05-30] MEDS ORDERED: NITROGLYCERIN 0.4 MG SL TAB SL PRN (16:45)
[2020-05-30] MEDS ORDERED: HYDROcodone-ACET 5/325MG TAB PO PRN (16:45)
[2020-05-30] MEDS ORDERED: ACETAMINOPHEN 500 MG TAB PO PRN (16:45)
[2020-05-30] MEDS ORDERED: DEXTROSE (50%) 50ML SYRG IV PRN (16:45)
[2020-05-30] MEDS ORDERED: DOCUSATE SOD 100 MG CAP PO PRN (16:45)
[2020-05-30] MEDS ORDERED: MORPHINE SULF INJ 2 MG/ML SYRINGE 1ML IV PRN (16:45)
[2020-05-30] MEDS: SODIUM CHLORIDE 0.9% 1,000 ML IV SCH (16:49)
[2020-05-30] MEDS: MORPHINE SULF INJ 2 MG/ML SYRINGE 1ML IV PRN ×2 (18:15→22:50)
[2020-05-30] MEDS: ACCU-CHEK COMFORT CURVE STRIP VI SCH ×2 (18:15→22:00)
[2020-05-30] MEDS: InsuLIN REG 1unit/0.01ml Soln (100units/ml) SC SCH ×2 (18:16→22:00)
[2020-05-30 21:30] VITALS: BP 123/63
[2020-05-30] MEDS ORDERED: LINEZOLID 600MG/300ML 300 ML IV SCH (22:00)
[2020-05-30] MEDS ORDERED: TEMAZEPAM 15 MG CAP PO ONE (22:30)
[2020-05-30] MEDS: MEROPENEM 1GM IVPB 100 ML IV SCH (23:21)
--- NOTE | 2020-05-30 23:29 | NUR ---
[facility]SA AND WOUND CX SENT. WOUND PHOTOS TAKEN.
[2020-05-31] MEDS: SODIUM CHLORIDE 0.9% 1,000 ML IV SCH ×3 (03:19→16:06)
[2020-05-31 05:21] VITALS: BP 128/69
[2020-05-31 05:33] LABS: Basophils # (auto) 0 10 ^3/uL (0-0.2); Eosinophils # (auto) 0.9 10 ^3/uL (0-0.8); Monocytes # (auto) 0.6 10 ^3/uL (0-1.3); Platelet Count (auto) 375 10^3/uL (140-450); White Blood Cell 7.2 10^3/uL (4.4-10.8)
[2020-05-31 05:36] LABS: Basophils % (auto) 0.4 % (0.0-2.0); Hematocrit 22.3 % (36.0-46.0); Hemoglobin 7.1 g/dL (12.2-16.2); Lymphocytes # (auto) 1.6 10 ^3/uL (0.4-5.4); Lymphocytes % (auto) 21.8 % (10.0-50.0); Mean Corpuscular Hemoglobin 26.7 pg (28.0-32.0); Mean Corpuscular Hgb Conc. 31.8 g/dL (32.0-36.0); Monocytes % (auto) 7.9 % (0.0-12.0); Neutrophils # (auto) 4.1 10 ^3/uL (1.6-8.6); Neutrophils % (auto) 56.9 % (37.0-80.0); Nucleated Red Blood Cells % 0.1 %; Red Blood Cells 2.65 10^6/uL (4.0-5.20); Red Cell Distribution Width 14.6 % (11.8-14.3)
[2020-05-31 05:53] LABS: Calcium 8.4 mg/dL (8.5-10.1); Potassium 4.7 mmol/L (3.5-5.1)
[2020-05-31] MEDS: MEROPENEM 1GM IVPB 100 ML IV SCH ×2 (06:18→13:35)
[2020-05-31] MEDS: MORPHINE SULF INJ 2 MG/ML SYRINGE 1ML IV PRN ×4 (06:18→22:11)
[2020-05-31] MEDS: InsuLIN REG 1unit/0.01ml Soln (100units/ml) SC SCH ×4 (06:18→22:00)
[2020-05-31] MEDS: ACCU-CHEK COMFORT CURVE STRIP VI SCH ×4 (06:18→22:11)
--- NOTE | 2020-05-31 08:00 | NUR ---
OPENING SHIFT NOTE ASSUMED CARE OF PATIENT AWAKE AND ALERT. NO S/S OF DISTRESS NOTED OR COMPLAINTS OF PAIN. PATIENT UPDATED ON POC FOR THE DAY AND ALL QUESTIONS ANSWERED. BED IS IN LOWEST, LOCKED POSITION WITH SIDE RAILS UP X2 AND CALL LIGHT WITHIN REACH. WILL CONTINUE TO MONITOR Q1H AND PRN.
[2020-05-31 08:50] VITALS: BP 121/70
[2020-05-31] MEDS: FAMOTIDINE 20 MG TAB PO SCH (09:31)
[2020-05-31] MEDS ORDERED: INFLUENZA QUAD 2020-2021 0.5 ML SYRG IM ONE (10:00)
[2020-05-31] MEDS ORDERED: PNEUMOCOCCAL VACC POLYS 25 MCG/0.5 ML VIAL IM ONE (10:00)
--- NOTE | 2020-05-31 11:30 | NUR ---
WOUND CARE NOTE: Wound care in to see patient per wound care request regarding "Infected L Foot". Bedside nurse took photograph of patient's wound upon admission for reference. Patient is 44 years old female with admitting diagnosis of L Foot Cellulitis Rule Out Osteomyelitis. Patient is resting in bed in Rm. 201A. Patient is awake, alert and oriented. She's self turning and repositioning. Her Joe score is 22. Patient just medicated for pain by her bedside nurse. Noted patient's L lower leg down to her L foot is edematous. Removed patient's L Foot wound dressing. Moderate amount of serosanguineous drainage noted on old dressing. Her L 1st, L 2nd and 3rd toe are missing with 4cm pink scar tissue to dorsal aspect of L foot. Distal to it, is puncture size wound draining serosanguineous drainage, no odor noted. Wound culture specimen reported sent to lab and in process. Patient's L plantar foot with closed calloused DFU measuring 4x1cm. Traci wound is yellow hyperkeratotic skin. 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 Crain. Patient reported that she's sent by her Home Health nurse due to wound is not healing and swelling to her LLE. Cleansed patient's L foot wounds with wound cleanser,patted dry with gauze,covered wound with abd pad, wrapped with Kerlix and secured with tape. Patient tolerated well and denies any other wound. Patient has active podiatry consult for Dr. Crain. RECOMMENDATION: Will defer wound dressing order to [employer] Plating Machine Operator, Dietary consult,elevate affected extremity on pillows, redistribute pressure points with pillows, continue monitoring by wound care while patient is hospitalized. Addendum: 05/31/20 at 1334 by Aditi Maloney RN Amended: Links added.
--- NOTE | 2020-05-31 13:10 | NUR ---
AT BEDSIDE DR GARZON AT BEDSIDE CONSULTING WITH PATIENT.
[2020-05-31 13:23] VITALS: BP 145/83
[2020-05-31] MEDS ORDERED: ALPRAZolam 0.25 MG TAB PO PRN (15:45)
[2020-05-31] MEDS ORDERED: VANCOMYCIN PER PHARMACY 0 MG IV SCH (15:45)
[2020-05-31] MEDS ORDERED: IPRATROPIUM BROM 0.5 MG/2.5ML INH SOL NEB PRN (15:45)
[2020-05-31] MEDS ORDERED: ALBUTEROL SULF 2.5 MG/0.5ML(0.5%) NEB SOLN NEB PRN (15:45)
--- NOTE | 2020-05-31 16:30 | NUR ---
PT REFUSED P.T. TODAY.
[2020-05-31 16:34] VITALS: BP 147/80
[2020-05-31] MEDS: VANCOMYCIN 1GM/250ML 250 ML IV SCH (17:05)
[2020-05-31 17:14] VITALS: BP 147/80
--- NOTE | 2020-05-31 19:22 | NUR ---
PT ASSESSED FOR PRN MED NEB TX. SPO2 97% ON RA, HR 107. PT DENIES ANY RESPIRATORY DISTRESS. NO TX INDICATED. PT IS AWARE TO HAVE RT PAGED IF TX NEEDED.
[2020-05-31 22:00] VITALS: BP 161/90
[2020-05-31] MEDS: INSULIN LANTUS (GLARGINE) 1 /0.01ml (100units/ml) SC SCH (22:00)
[2020-05-31] MEDS: MUPIROCIN 2% OINT 15gm or 22gm EACHNOSTRI SCH (22:10)
[2020-05-31] MEDS: traZODone HCL 50 MG TAB PO SCH (22:10)
[2020-06-01] MEDS: MORPHINE SULF INJ 2 MG/ML SYRINGE 1ML IV PRN ×4 (03:59→23:51)
[2020-06-01 05:00] VITALS: BP 142/77
[2020-06-01] MEDS: MEROPENEM 1GM IVPB 100 ML IV SCH ×2 (05:44→17:01)
[2020-06-01] MEDS: SODIUM CHLORIDE 0.9% 1,000 ML IV SCH ×2 (05:45→20:21)
[2020-06-01] MEDS: VANCOMYCIN 1GM/250ML 250 ML IV SCH ×2 (06:49→20:53)
[2020-06-01] MEDS: InsuLIN REG 1unit/0.01ml Soln (100units/ml) SC SCH ×4 (06:49→21:37)
[2020-06-01] MEDS: ACCU-CHEK COMFORT CURVE STRIP VI SCH ×4 (06:49→21:36)
[2020-06-01 06:55] LABS: Basophils # (auto) 0 10 ^3/uL (0-0.2); Eosinophils # (auto) 0.8 10 ^3/uL (0-0.8); Monocytes # (auto) 0.5 10 ^3/uL (0-1.3); Red Cell Distribution Width 14.4 % (11.8-14.3); White Blood Cell 6.6 10^3/uL (4.4-10.8)
[2020-06-01 06:57] LABS: Basophils % (auto) 0.4 % (0.0-2.0); Eosinophils % (auto) 12.7 % (0.0-7.0); Hematocrit 24.4 % (36.0-46.0); Lymphocytes # (auto) 1.3 10 ^3/uL (0.4-5.4); Lymphocytes % (auto) 19.3 % (10.0-50.0); Mean Corpuscular Hemoglobin 27.4 pg (28.0-32.0); Mean Corpuscular Hgb Conc. 32.8 g/dL (32.0-36.0); Mean Corpuscular Volume 83.6 fL (80.0-100.0); Monocytes % (auto) 7.7 % (0.0-12.0); Neutrophils # (auto) 3.9 10 ^3/uL (1.6-8.6); Neutrophils % (auto) 59.9 % (37.0-80.0); Platelet Count (auto) 438 10^3/uL (140-450); Red Blood Cells 2.91 10^6/uL (4.0-5.20)
[2020-06-01] MEDS ORDERED: MIDAZOLAM HCL 1MG/1ML-2 ML VIAL ONE (07:15)
[2020-06-01] MEDS ORDERED: KETAMINE HCL 10 ML ONE (07:16)
[2020-06-01] MEDS ORDERED: ONDANSETRON HCL 4 MG/2 ML VIAL ONE (07:16)
[2020-06-01] MEDS ORDERED: LIDOCAINE 2% (LOCAL ANESTH.) PF 5ml SDV ONE (07:16)
[2020-06-01] MEDS ORDERED: PROPOFOL 10 MG/ML 20 ML IV ONE (07:16)
[2020-06-01] MEDS ORDERED: GLYCOPYRROLATE 0.2 MG/ML 1ML VIAL ONE (07:16)
[2020-06-01] MEDS ORDERED: ceFAZolin 1GM VL ONE (07:17)
[2020-06-01] MEDS ORDERED: VANCOMYCIN HCL 1000 MG VL ONE (07:26)
--- NOTE | 2020-06-01 07:28 | NUR ---
OFF UNIT PATIENT TAKEN DOWN TO PREOP WITHOUT INCIDENT.
[2020-06-01 07:29] LABS: Albumin 1.5 g/dL (3.4-5.0); BUN/Creatinine Ratio 11.7; Bilirubin, Total 0.1 mg/dL (0.2-1.0); Calcium 8.4 mg/dL (8.5-10.1); Magnesium 2.1 mg/dL (1.6-2.6); Potassium 4.9 mmol/L (3.5-5.1); Total Protein 6.6 g/dL (6.4-8.2)
--- NOTE | 2020-06-01 07:30 | NUR ---
Respiratory note: PT IS RESTING COMFORTABLY. NO RESPIRATORY DISTRESS NOTED. SPO2 100% ON RA, HR 96, RR 16 BS CLEAR BILATERALLY. PRN MEDNEB TX NOT INDICATED AT THIS TIME. PT INFORMED TO PUSH CALL BUTTON IF INCREASED WOB, SOB, OR WHEEZING OCCURS. WILL CONTINUE TO MONITOR PT.
[2020-06-01] MEDS ORDERED: CLINDAMYCIN 600MG IV 50 ML IV ONE (07:37)
[2020-06-01] MEDS ORDERED: ONDANSETRON HCL 4 MG/2 ML VIAL IV PRN (08:30)
[2020-06-01] MEDS ORDERED: ACCU-CHEK COMFORT CURVE STRIP VI ONE (08:30)
[2020-06-01] MEDS ORDERED: HYDROmorphone HCL 2 MG/ML VL IV PRN (08:30)
--- NOTE | 2020-06-01 08:30 | NUR ---
HOLD P.T. TODAY. PATIENT WENT DOWN FOR A PROCEDURE.
--- NOTE | 2020-06-01 08:53 | NUR ---
RETURN TO UNIT PATIENT BROUGHT BACK TO ROOM AFTER REPORT RECEIVED. WILL CONTINUE CARE.
[2020-06-01] MEDS: SERTRALINE HCL 50 MG TAB PO SCH (09:53)
[2020-06-01] MEDS: FAMOTIDINE 20 MG TAB PO SCH (09:53)
[2020-06-01] MEDS: ENOXAPARIN SOD 30 MG/0.3 ML SYRINGE SC SCH (09:53)
[2020-06-01] MEDS: MUPIROCIN 2% OINT 15gm or 22gm EACHNOSTRI SCH ×2 (09:53→21:41)
[2020-06-01 09:57] LABS: INR 1.05 (0.9-1.15); Partial Thromboplastin Time 30.9 sec (23.0-31.2)
--- NOTE | 2020-06-01 10:41 | NUR ---
AT BEDSIDE DR FARNSWORTH AT BEDSIDE ROUNDING ON PATIENT.
--- NOTE | 2020-06-01 12:28 | NUR ---
Nutrition Consult/Assessment Notes Please see attached link for complete assessment Est energy needs ABW 102 [id number] kcal (17-20 kcal/kg ABW), Est protein needs: 81-102 g (0.8-1.0g/kg ABW r/t elev RFT wounds hypoalb) Will reassess prn. Addendum: 06/01/20 at [address] Amended: Links added.
[2020-06-01 12:38] VITALS: BP 108/70
[2020-06-01 16:27] VITALS: BP 156/89
--- NOTE | 2020-06-01 19:10 | NUR ---
OPENING SHIFT NOTE Assumed care of patient who is on ISO for MRSA in the nares and in the blood, patient is alert and oriented, currently on RA with no S/S of distress or SOB noted at this time. Patient had an I&D of the left foot today with , Dressing has minimal serous drainage to the dressing, circled and reinforced. Patient complains of pain 9/10 to the left foot, will administer pain medication as ordered. POC discussed with patient, all questions answered and patient verbalized understanding. Bed in lowest position, locked, side rials up x2. Call light within reach, patient encouraged to call for assistance as needed. Will continue to monitor PRN/Q1hr.
[2020-06-01] MEDS: INSULIN LANTUS (GLARGINE) 1 /0.01ml (100units/ml) SC SCH (21:36)
[2020-06-01] MEDS: traZODone HCL 50 MG TAB PO SCH (21:41)
[2020-06-01 22:00] VITALS: BP 155/87
[2020-06-02] VITALS (9 sets, daily range): BP systolic 130–168; BP diastolic 68–100
[2020-06-02] MEDS: MORPHINE SULF INJ 2 MG/ML SYRINGE 1ML IV PRN ×4 (04:13→22:32)
[2020-06-02] MEDS: MEROPENEM 1GM IVPB 100 ML IV SCH ×2 (04:49→17:11)
[2020-06-02 05:05] LABS: Basophils # (auto) 0.1 10 ^3/uL (0-0.2); Eosinophils # (auto) 0.8 10 ^3/uL (0-0.8); White Blood Cell 6.9 10^3/uL (4.4-10.8)
[2020-06-02 05:07] LABS: Basophils % (auto) 1.1 % (0.0-2.0); Eosinophils % (auto) 10.9 % (0.0-7.0); Hematocrit 21.3 % (36.0-46.0); Lymphocytes % (auto) 29.1 % (10.0-50.0); Mean Corpuscular Hemoglobin 27.1 pg (28.0-32.0); Mean Corpuscular Hgb Conc. 32.4 g/dL (32.0-36.0); Mean Corpuscular Volume 83.6 fL (80.0-100.0); Monocytes # (auto) 0.6 10 ^3/uL (0-1.3); Monocytes % (auto) 8.2 % (0.0-12.0); Neutrophils # (auto) 3.5 10 ^3/uL (1.6-8.6); Neutrophils % (auto) 50.7 % (37.0-80.0); Platelet Count (auto) 417 10^3/uL (140-450); Red Blood Cells 2.55 10^6/uL (4.0-5.20); Red Cell Distribution Width 14.2 % (11.8-14.3)
--- NOTE | 2020-06-02 05:17 | NUR ---
CRITICAL LAB Received Critical HgB of 6.9. Paged hospitalist awaiting call back.
[2020-06-02 05:18] LABS: Hemoglobin 6.9 g/dL (12.2-16.2)
[2020-06-02 05:25] LABS: BUN/Creatinine Ratio 10.5; Calcium 8.1 mg/dL (8.5-10.1); Potassium 4.8 mmol/L (3.5-5.1)
--- NOTE | 2020-06-02 05:30 | NUR ---
HOSPITALIST CALL BACK Aware of critical Hgb 6.9, Hospitalist Maki ordered 1 Unit of PRBC's. Verified and repeated back. Will carry out orders.
[2020-06-02] MEDS: ACCU-CHEK COMFORT CURVE STRIP VI SCH ×4 (06:40→22:54)
[2020-06-02] MEDS: InsuLIN REG 1unit/0.01ml Soln (100units/ml) SC SCH ×4 (06:41→22:55)
--- NOTE | 2020-06-02 07:18 | NUR ---
CARE ENDORSED TO ADEBAYO TAMAYO
--- NOTE | 2020-06-02 07:30 | NUR ---
Opening Shift Note Assumed care of patient, who is alert and oriented x4. Respirations are even and unlabored. No S/S of distress/SOB or pain. Bed is low, locked with 2x side rails up. Call light is within reach. Instructed on POC and to call for assist PRN, will continue to monitor for changes Q1hr and PRN.
[2020-06-02] MEDS: FAMOTIDINE 20 MG TAB PO SCH (09:08)
[2020-06-02] MEDS: ENOXAPARIN SOD 30 MG/0.3 ML SYRINGE SC SCH (09:08)
[2020-06-02] MEDS: SERTRALINE HCL 50 MG TAB PO SCH (09:08)
[2020-06-02] MEDS: MUPIROCIN 2% OINT 15gm or 22gm EACHNOSTRI SCH ×2 (09:09→22:38)
[2020-06-02] MEDS: ONDANSETRON HCL 4 MG/2 ML VIAL IV PRN (10:18)
[2020-06-02] MEDS: SODIUM CHLORIDE 0.9% 1,000 ML IV SCH ×2 (10:39→23:15)
--- NOTE | 2020-06-02 11:22 | NUR ---
Respiratory note: Respiratory note: PT ASSESSED FOR PRN MED NEB. PT RESTING COMFORTABLY. PT FOUND ON ROOM AIR SP02 96%. RR 20. PT B/S ARE DIMINISHED. NO TX INDICATED AT THIS TIME. WILL CONT. TO MONITOR.
--- NOTE | 2020-06-02 11:45 | NUR ---
Dr. Ventura at bedside Discussing POC with patient. No new orders received.
--- NOTE | 2020-06-02 12:00 | NUR ---
HOLD P.T. BECAUSE OF BLOOD TRANSFUSION.
--- NOTE | 2020-06-02 13:51 | NUR ---
Blood transfusion done Patient tolerated transfusion well. VSS: T: 98.2 BP: 138/77 mmHg HR: 98 BPM RR:16 BPM. Bed is low, locked with 2x side rails up. Call light is within reach. This nurse to round Q1hr and PRN.
--- NOTE | 2020-06-02 14:01 | NUR ---
UA Patient aware of need for urine sample. Specimen cup at bedside. Will follow up.
--- NOTE | 2020-06-02 16:55 | NUR ---
HTN Spoke to Dr. Ventura in regards to patient's current BP. BP:167/96 HR:96. Patient takes Benazepril 40mg PO Daily. Received new orders for one time dose and to continue home medications. Orders read back to verify.
[2020-06-02] MEDS ORDERED: cloNIDine HCL 0.1 MG TAB PO PRN (17:00)
[2020-06-02] MEDS ORDERED: BENA40TA83 PO (17:00)
[2020-06-02] MEDS ORDERED: BENAZEPRIL HCL 10 MG TAB PO ONE (17:00)
--- NOTE | 2020-06-02 17:55 | NUR ---
RT NOTE: PT ON ROOM AIR WITH NO DISTRESS NOTED. SPO2 97%. NO TX INDICATED
--- NOTE | 2020-06-02 19:09 | NUR ---
Opening Shift Note Assumed care of patient after receiving report from terrance, RN. Patient is awake and alert with no S/S of distress, SOB or pain noted at this time. Call light within reach, bed in lowest, locked position x2 side rails up for safety. Instructed on POC and to call for assist PRN, will continue to monitor for changes Q1hr and PRN.
[2020-06-02] MEDS ORDERED: VANCOMYCIN 1GM/250ML 250 ML IV ONE (21:00)
--- NOTE | 2020-06-02 22:30 | NUR ---
High BP reassessed, pain medication RN was informed of elevated BP 168/100 and HR 107. RN entered room to see patient visibly upset and crying. Patient stated she had been on the phone prior with her and they were arguing. Patient became upset with and with situation of her yelling at her. At this time, patient was given PRN pain medication for 9/10 pain at surgical site on left foot. RN spoke with patient and attempted to calm patient. Reassessed BP 147/90 and HR 101, patient resting comfortably with no distress noted. Will continue to monitor.
[2020-06-02] MEDS: traZODone HCL 50 MG TAB PO SCH (22:31)
[2020-06-02] MEDS: INSULIN LANTUS (GLARGINE) 1 /0.01ml (100units/ml) SC SCH (22:54)
--- NOTE | 2020-06-03 01:28 | NUR ---
RT NOTE: PT ON ROOM AIR WITH NO DISTRESS NOTED. SPO2 97%. NO TX INDICATED Addendum: 06/03/20 at 0130 by Jadiel Blanco RT WRONG DATE AND TIME
[2020-06-03] MEDS: ONDANSETRON HCL 4 MG/2 ML VIAL IV PRN ×3 (04:33→22:10)
[2020-06-03 05:00] VITALS: BP 154/84
[2020-06-03 05:02] LABS: Basophils # (auto) 0 10 ^3/uL (0-0.2); Basophils % (auto) 0.7 % (0.0-2.0); Eosinophils # (auto) 0.6 10 ^3/uL (0-0.8); Hematocrit 28.4 % (36.0-46.0); Lymphocytes # (auto) 1.8 10 ^3/uL (0.4-5.4); Monocytes # (auto) 0.6 10 ^3/uL (0-1.3); Nucleated Red Blood Cells % 0.1 %
[2020-06-03] MEDS: MEROPENEM 1GM IVPB 100 ML IV SCH ×2 (05:02→16:45)
[2020-06-03] MEDS: MORPHINE SULF INJ 2 MG/ML SYRINGE 1ML IV PRN ×4 (05:03→22:11)
[2020-06-03 05:05] LABS: Eosinophils % (auto) 8.9 % (0.0-7.0); Hemoglobin 9.1 g/dL (12.2-16.2); Lymphocytes % (auto) 25.3 % (10.0-50.0); Mean Corpuscular Hemoglobin 26.6 pg (28.0-32.0); Mean Corpuscular Volume 83.2 fL (80.0-100.0); Monocytes % (auto) 8.3 % (0.0-12.0); Neutrophils % (auto) 56.8 % (37.0-80.0); Platelet Count (auto) 493 10^3/uL (140-450); Red Blood Cells 3.41 10^6/uL (4.0-5.20); Red Cell Distribution Width 14.4 % (11.8-14.3)
[2020-06-03 05:24] LABS: BUN/Creatinine Ratio 8.7; Calcium 8.2 mg/dL (8.5-10.1); Potassium 4.6 mmol/L (3.5-5.1)
[2020-06-03] MEDS: ACCU-CHEK COMFORT CURVE STRIP VI SCH ×4 (06:22→22:12)
--- NOTE | 2020-06-03 06:30 | NUR ---
Wound care Wound care performed per MD order. Patient medicated with PRN Morphine before. Patient tolerated intervention well.
[2020-06-03] MEDS: InsuLIN REG 1unit/0.01ml Soln (100units/ml) SC SCH ×4 (06:39→22:00)
[2020-06-03 08:30] VITALS: BP 152/79
[2020-06-03] MEDS: BENAZEPRIL HCL 10 MG TAB PO SCH (09:33)
[2020-06-03] MEDS: SERTRALINE HCL 50 MG TAB PO SCH (09:33)
[2020-06-03] MEDS: FAMOTIDINE 20 MG TAB PO SCH (09:33)
[2020-06-03] MEDS: MUPIROCIN 2% OINT 15gm or 22gm EACHNOSTRI SCH ×2 (09:38→22:09)
[2020-06-03] MEDS: ENOXAPARIN SOD 30 MG/0.3 ML SYRINGE SC SCH (09:39)
--- NOTE | 2020-06-03 09:40 | NUR ---
Urine sample Reminded patient of need for urine sample. Patient verbalized understanding. Specimen cup at bedside. Will continue to monitor Q1hr and PRN.
--- NOTE | 2020-06-03 10:10 | NUR ---
Dr. Ventura rounding Dr. Ventura at bedside. No new orders received.
[2020-06-03 12:04] VITALS: BP 158/86
[2020-06-03 12:16] LABS: Urine Bacteria NONE SEEN /hpf (None Seen); Urine Blood 2+ /uL (Negative); Urine Specific Gravity 1.014 (1.001-1.035); Urine WBC 6 /hpf (0 - 5)
--- NOTE | 2020-06-03 14:30 | NUR ---
Respiratory note: ASSESSED FOR PRN. PT ON ROOM AIR. SP02 96%, HR 82, RR 20. PT AWAKE ALERT AND RESPONSIVE. PT HAS NO COMPLAINT OF SOB. PT IN NO DISTRESS AT THIS TIME. NO TX INDICATED AT THIS TIME.
[2020-06-03] MEDS: SODIUM CHLORIDE 0.9% 1,000 ML IV SCH (15:15)
--- NOTE | 2020-06-03 15:37 | NUR ---
PT REPORTS THAT SHE HAS BEEN UP WITH NURSING TODAY. ATTEMPT P.T. TOMORROW.
[2020-06-03 16:26] VITALS: BP 161/91
--- NOTE | 2020-06-03 18:06 | NUR ---
PT ON ROOM AIR WITH NO DISTRESS NOTED. SPO2 98% HR 99, RR 18. PT DENIES SOB. BS CLEAR. NO TX INDICATED AT THIS TIME.
--- NOTE | 2020-06-03 19:00 | NUR ---
Opening Shift Note Assumed care of patient, awake and alert. No S/S of distress/SOB or pain. Instructed on POC and to call for assist PRN, will continue to monitor for changes Q1hr and PRN.
[2020-06-03 22:00] VITALS: BP 147/90
[2020-06-03] MEDS: INSULIN LANTUS (GLARGINE) 1 /0.01ml (100units/ml) SC SCH (22:00)
[2020-06-03] MEDS: traZODone HCL 50 MG TAB PO SCH (22:12)
[2020-06-04] MEDS ORDERED: VANCOMYCIN 500 MG in D5W 5% 100 ML IV SCH (03:00)
[2020-06-04 03:46] VITALS: BP 147/90
[2020-06-04] MEDS: MEROPENEM 1GM IVPB 100 ML IV SCH (04:54)
[2020-06-04 05:00] VITALS: BP 101/64
[2020-06-04 06:59] LABS: Basophils # (auto) 0 10 ^3/uL (0-0.2); Basophils % (auto) 0.7 % (0.0-2.0); Eosinophils # (auto) 0.5 10 ^3/uL (0-0.8); Eosinophils % (auto) 8.4 % (0.0-7.0); Hematocrit 26.8 % (36.0-46.0); Hemoglobin 8.7 g/dL (12.2-16.2); Lymphocytes # (auto) 1.5 10 ^3/uL (0.4-5.4); Lymphocytes % (auto) 24.6 % (10.0-50.0); Mean Corpuscular Hemoglobin 27.4 pg (28.0-32.0); Mean Corpuscular Hgb Conc. 32.5 g/dL (32.0-36.0); Mean Corpuscular Volume 84.2 fL (80.0-100.0); Monocytes # (auto) 0.6 10 ^3/uL (0-1.3); Neutrophils # (auto) 3.4 10 ^3/uL (1.6-8.6); Neutrophils % (auto) 56.3 % (37.0-80.0); Nucleated Red Blood Cells % 0.1 %; Platelet Count (auto) 415 10^3/uL (140-450); Red Blood Cells 3.19 10^6/uL (4.0-5.20); Red Cell Distribution Width 14.7 % (11.8-14.3)
[2020-06-04] MEDS: InsuLIN REG 1unit/0.01ml Soln (100units/ml) SC SCH ×2 (07:00→11:23)
[2020-06-04] MEDS: ONDANSETRON HCL 4 MG/2 ML VIAL IV PRN ×2 (07:04→15:55)
[2020-06-04] MEDS: MORPHINE SULF INJ 2 MG/ML SYRINGE 1ML IV PRN (07:05)
[2020-06-04] MEDS: ACCU-CHEK COMFORT CURVE STRIP VI SCH ×2 (07:05→11:22)
[2020-06-04 07:16] LABS: Potassium 4.9 mmol/L (3.5-5.1)
[2020-06-04 07:21] LABS: BUN/Creatinine Ratio 9.4; Calcium 8.1 mg/dL (8.5-10.1)
[2020-06-04 08:00] VITALS: BP 157/90
[2020-06-04] MEDS: FAMOTIDINE 20 MG TAB PO SCH (09:48)
[2020-06-04] MEDS: SERTRALINE HCL 50 MG TAB PO SCH (09:48)
[2020-06-04] MEDS: BENAZEPRIL HCL 10 MG TAB PO SCH (09:49)
[2020-06-04] MEDS: ENOXAPARIN SOD 30 MG/0.3 ML SYRINGE SC SCH (09:50)
--- NOTE | 2020-06-04 09:51 | NUR ---
PT REPORTS THAT SHE IS INDEPENDENT IN TRANSFERS AND DOES NOT HAVE THE BALANCE TO AMBULATE WITH [facility] RLE. PATIENT HAS A W/C AND BSC AT HOME WITH GOOD CAREGIVER SUPPORT. D/C FROM [facility].
[2020-06-04] MEDS: MUPIROCIN 2% OINT 15gm or 22gm EACHNOSTRI SCH (10:00)
--- NOTE | 2020-06-04 10:20 | NUR ---
AT BEDSIDE DR LO AT BEDSIDE UPDATING PATIENT ON POC. WILL CONTINUE CARE.
--- NOTE | 2020-06-04 11:33 | NUR ---
assessment Patient is a 44 year old female who is alert and oriented. Patients cognitive abilities are intact. Prior to admission patient lived home with family and functioned with assistance. Per patient she will return home to her prior living arrangements post discharge and family will transport her home. Patient informed me she has a wheelchair and bedside commode for home use. Patient informed me she is on service with [facility]. Patient has been admitted for infection of her foot. Patient will need home IV ABX. Patient informed me she will have help in between home health nursing visits. I informed her that Heather and Demi outsole caser will be satisfying MD order. I informed patient she has a right to speak to a social service liaison regarding all care. I informed patient she has a right to participate in any and all discharge planning. Patient does not have a POA and advanced directive. I have offered patient information on POA and advanced directives. I informed the patient the advantages and benefits of having an Advanced Directive. Patient verbalized understanding and agreed to discharge plan. Addendum: 06/04/20 at 1139 by Sumi ALVAREZ Amended: Links added.
--- NOTE | 2020-06-04 11:55 | NUR ---
I faxed home IV ATB order to [facility].
[2020-06-04 12:00] VITALS: BP 145/76
[2020-06-04] MEDS ORDERED: DAPTOmycin 500 MG in SODIUM CHL 0.9% 50 ML IV ONE (13:00)
--- NOTE | 2020-06-04 14:56 | NUR ---
I spoke with Zita at [facility] ([phone])-she said they will deliver IV ATB between 7-10pm this evening. Faxed her updated medication list showing IV Daptomycin being given here.
--- NOTE | 2020-06-04 15:59 | NUR ---
D/C Planning Per social service consult for home health IV abx and wound care. Payroll Manager Demi will work on IV abx. Per CA[facility] II patient is on service with [facility]. Faxed clinical information to agency. Per Crissy with [facility] patient has been accepted and service to start within 24-48hrs upon d/c day. Faxed to [facility]. Obtain authorization from [facility] for home health [id number].
--- NOTE | 2020-06-04 17:09 | NUR ---
Discharge instructions given as ordered. Encourage to follow up with PMD as instructed. All questions and concerns addressed. Patient verbalized understanding. Patient would like to opt out of flu and pneumonia vaccine at this time. Patient being discharged with DAISHA PICC in place. Telemetry unit returned to ICU. Patient taken to vehicle via wheelchair with all personal belongings, accompanied by staff. No distress noted at time of departure.
== END 2020-06-04 17:06 | disposition home health service (06) | DRG 349 ==
LOC: ER 14:30 → TELE 14:31 → TELE-CENTR 20:10
PROVIDERS: ADMIT Nurse Practitioner Acute Care; ATTEND Internal Medicine
PROC: 0Y9N0ZZ Drainage of Left Foot, Open Approach (ICD-10-PCS; principal; 2020-06-02)
PROC: 30233N1 Transfusion of Nonautologous Red Blood Cells into Peripheral Vein, Percutaneous Approach (ICD-10-PCS; 2020-06-02)
DX: T87.44 Infection of amputation stump, left lower extremity (principal); A41.02 Sepsis due to Methicillin resistant Staphylococcus aureus; E66.01 Morbid (severe) obesity due to excess calories; E11.65 Type 2 diabetes mellitus with hyperglycemia; N18.4 Chronic kidney disease, stage 4 (severe); E88.09 Other disorders of plasma-protein metabolism, not elsewhere classified; E11.69 Type 2 diabetes mellitus with other specified complication; E11.22 Type 2 diabetes mellitus with diabetic chronic kidney disease; M86.9 Osteomyelitis, unspecified; R71.0 Precipitous drop in hematocrit; Z68.42 Body mass index [BMI] 45.0-49.9, adult; I12.9 Hypertensive chronic kidney disease with stage 1 through stage 4 chronic kidney disease, or unspecified chronic kidney disease; T87.81 Dehiscence of amputation stump; E78.5 Hyperlipidemia, unspecified; Z89.422 Acquired absence of other left toe(s); J45.909 Unspecified asthma, uncomplicated; L02.612 Cutaneous abscess of left foot; F41.8 Other specified anxiety disorders; Y83.8 Other surgical procedures as the cause of abnormal reaction of the patient, or of later complication, without mention of misadventure at the time of the procedure; K21.9 Gastro-esophageal reflux disease without esophagitis; L03.116 Cellulitis of left lower limb; Z79.4 Long term (current) use of insulin; Z80.9 Family history of malignant neoplasm, unspecified; Z82.49 Family history of ischemic heart disease and other diseases of the circulatory system; Z82.5 Family history of asthma and other chronic lower respiratory diseases; Z83.3 Family history of diabetes mellitus; Z79.899 Other long term (current) drug therapy; Y92.89 Other specified places as the place of occurrence of the external cause; Z88.0 Allergy status to penicillin
CPT/HCPCS: 36415; 73700; 80048; 80053; 80202; 81001; 82565; 82962; 83036; 83605; 83735; 84443; 84702; 85025; 85610; 85652; 85730; 86850; 86900; 86901; 86920; 87040; 87077; 87081; 87186; 87205; 93306; 93971; 96361; 96374; 96375; G0378; J0690; J1815; J2001; J2185; J2250; J2405; J2704; J3490; J7060